=== PATIENT | female | born 1930 | race Caucasian/White ===

== ENCOUNTER 2016-03-29 08:46 | Inpatient (IN) | payer BC, OTHER ==
[2016-03-29] VITALS (7 sets, daily range): BP systolic 104–121; BP diastolic 62–70; PULSE 81–93; TEMP 36.7–37.2; O2SAT 86–98; Ht 149.9 cm; Wt 64.0 kg
[~2016-03-29] VITALS: Ht 149.9 cm; Wt 64.0 kg
[~2016-03-29 08:46] MED LIST: ETOMIDATE 2 MG/ML 20 ML VIAL IV ONE; MIDAZOLAM HCL 5 MG/ML 2ML VIAL IV ONE
[2016-03-29] MEDS ORDERED: ALBUT/IPRATROP 3MG/0.5MG NEB 3 ML VIAL INH STA (09:50)
--- NOTE | 2016-03-29 09:54 | DIAGNOSTIC IMAGING REPORT ---
CHEST ONE VIEW PORTABLE CLINICAL HISTORY: Shortness of breath COMPARISON STUDY: No previous studies for comparison. FINDINGS: The heart is enlarged. There are bilateral asymmetric airspace opacities right greater than left. Likely diagnostic considerations include a bilateral pneumonitis, versus an atypical appearance of asymmetric pulmonary edema. There is blunting of the right lateral costophrenic angle. No pneumothorax is visualized. There is aortic tortuosity/ectasia. There is evidence of prior vertebroplasty's. IMPRESSION: Bilateral asymmetric pulmonary airspace opacities right greater than left. Likely diagnostic considerations include a bilateral pneumonitis versus an atypical appearance of asymmetric pulmonary edema. Clinical and radiographic follow-up is recommended. Electronically signed by: Dameon Braden M.D. 03/29/2016 9:53 AM Dictated Date/Time: 03/29/2016 9:51 AM
[2016-03-29 10:13] LABS: BASO % 0.2 %; BASO ABS # 0.02 K/uL (0-0.2); EOS % 4.1 %; HEMATOCRIT 26.9 % (37-47); IG% 1.1 %; LYMPH % 3.7 %; LYMPH ABS # 0.47 K/uL (1.2-3.4); MEAN CELL VOLUME 93.4 fL (80-100); MEAN CORPUSCULAR HEMOGLOBIN 28.5 pg (25-34); MEAN CORPUSCULAR HGB CONC 30.5 g/dl (32-36); MONO % 8.3 %; NEUT % 82.6 %; PLATELET COUNT 319 K/uL (130-400); RED BLOOD COUNT 2.88 M/uL (4.2-5.4); WHITE BLOOD COUNT 12.59 K/uL (4.8-10.8)
[2016-03-29 10:26] LABS: PARTIAL THROMBOPLASTIN RATIO 1.6
[2016-03-29 10:30] LABS: PROTHROMBIN TIME (PATIENT) 45.5 SECONDS (9.0-12.0)
[2016-03-29 10:31] LABS: BUN/CREATININE RATIO 32.9 (10-20); CALCIUM 7.8 mg/dl (8.5-10.1); CREATININE 0.4 mg/dl (0.60-1.20); POTASSIUM 4.1 mmol/L (3.5-5.1)
[2016-03-29 10:35] LABS: ALB/GLOB RATIO 0.5 (0.9-2)
[2016-03-29] MEDS ORDERED: MRLP17 PO (10:56)
[2016-03-29] MEDS ORDERED: METH2.5T PO ×2 (10:56→12:21)
[2016-03-29] MEDS ORDERED: PANT40TA PO (10:56)
[2016-03-29] MEDS ORDERED: AMOX500T PO (10:56)
[2016-03-29] MEDS ORDERED: IPRA1AER2 INH (10:56)
[2016-03-29] MEDS ORDERED: NF656 TOP (10:56)
[2016-03-29] MEDS ORDERED: SENN-65 PO (10:56)
[2016-03-29] MEDS ORDERED: TRAZ50TA35 PO (10:56)
[2016-03-29] MEDS ORDERED: NMN5 PO (10:56)
[2016-03-29] MEDS ORDERED: NYSS/ PO (10:56)
[2016-03-29] MEDS ORDERED: CYCL5TAB PO (10:56)
[2016-03-29] MEDS ORDERED: MOML PO (10:56)
[2016-03-29] MEDS ORDERED: WARF1TAB6 PO (10:56)
[2016-03-29] MEDS ORDERED: DONE5TAB9 PO (10:56)
[2016-03-29] MEDS ORDERED: METO50TA16 PO (10:56)
[2016-03-29] MEDS ORDERED: DOCU100C31 PO (10:56)
[2016-03-29] MEDS ORDERED: SODI1ENE PR (10:56)
[2016-03-29] MEDS ORDERED: OXYC-57 PO (10:56)
[2016-03-29] MEDS ORDERED: CALC500C70 PO (10:56)
[2016-03-29] MEDS ORDERED: TRAM-10 PO (10:56)
[2016-03-29] MEDS ORDERED: FAMO20TA11 PO (10:56)
[2016-03-29] MEDS ORDERED: PRED10TA PO (10:56)
[2016-03-29] MEDS ORDERED: PIPERACILLIN/TAZOBACTAM 4.5 GM/100ML D5W IV STA (10:58)
[2016-03-29] MEDS ORDERED: LEVAQUIN 750MG / 150ML D5W IV STA (10:58)
[2016-03-29 11:01] LABS: COMPLETE YES; POLYCHROMASIA 1+
[2016-03-29] MEDS ORDERED: ALUMINUM/MAGNESIUM/SIMETH (MAALOX MAX) 30 ML UDC PO PRN (12:15)
[2016-03-29] MEDS ORDERED: ACETAMINOPHEN 325 MG TAB PO PRN (12:15)
[2016-03-29] MEDS ORDERED: AZITHROMYCIN 250 MG TAB PO ONE (12:15)
[2016-03-29] MEDS ORDERED: NITROGLYCERIN 0.4 MG SL PER TAB CHARGE SL PRN (12:15)
[2016-03-29] MEDS ORDERED: TRAMADOL HCL 50 MG TAB PO PRN (12:15)
[2016-03-29] MEDS ORDERED: MAGNESIUM HYDROXIDE SUSP 30 ML UDC PO PRN (12:15)
[2016-03-29] MEDS ORDERED: PRZC/10 PO (12:21)
[2016-03-29] MEDS ORDERED: FLV1 PO (12:21)
[2016-03-29] MEDS ORDERED: FERR325T PO (12:21)
[2016-03-29] MEDS ORDERED: ALBINS/ INH (12:24)
--- NOTE | 2016-03-29 13:57 | HISTORY & PHYSICAL EXAMINATION ---
DATE OF ADMISSION: 03/29/2016 CHIEF COMPLAINT: Shortness of breath, respiratory distress. HISTORY OF PRESENT ILLNESS: This 85-year-old female with past medical history significant for hypertension, osteoporosis, depression, history of DVTs, history of recent PE, history of iron deficiency anemia, history of compression fractures, hyperlipidemia, vitamin D deficiency, mild aortic stenosis, rheumatoid arthritis involving multiple sites, dementia, lower back pain, presents with shortness of breath. The patient was recently in [facility], she had a compression fractures in November and she had kyphoplasty at that time and recently again she had back pain and she went to [facility] and found to have again T10 compression fracture and again she was done another kyphoplasty, which went okay, but she still had poorly controlled pain and she requested muscle relaxers, pain medications. Coumadin was held during this kyphoplasty procedure and then she developed short of breath and CT angiogram done in [facility] showed bilateral lower lobe PE and Coumadin was restarted.And she also during that episode she also developed SVT which was spontaneously resolved and her atenolol was changed to Lopressor in the hospital.Patient and family says she was still short of breath yesterday when she was discharged to [facility]. In [facility] today morning she was found in respiratory distress and she was transferred back to [facility]. Here she had a mild temperature spike and she was 82% on room air and she was placed on on 5 liters and was not saturating good and she was placed on BiPAP and is currently saturating okay on BiPAP. She also complained of chest pain in the morning, but it is getting better. Has cough but not bringing up of any phlegm. Denies any nausea, vomiting. Denies abdominal pain. As per family, the patient had poor ambulatory status after surgery and walking with assistance. Appetite is very poor. Constipated. Currently, the patient seems comfortable on BiPAP. ALLERGIES: CODEINE, HYDROMORPHONE AND MORPHINE. PAST MEDICAL HISTORY: As mentioned above. PAST SURGICAL HISTORY: Significant for cystoscopy, EGD with biopsy, laparoscopic cholecystectomy, cataract surgeries, removal lesion on face, total hysterectomy, kyphoplasty done in November 2015 and 03/19/2016. MEDICATIONS: Currently, the patient is on Percocet 5/325 mg 1 tablet every 4 hours p.r.n., Tylenol 325 mg every 4 hours p.r.n. pain, Zofran 4 mg p.o. q. 8 hours p.r.n., metoprolol 50 mg p.o. b.i.d., lidocaine patch on the skin daily, Senokot-S 2 tablets at bedtime, Flexeril 5 mg p.o. b.i.d. p.r.n., Pepcid 20 mg p.o. at bedtime, oxygen 3 liters as directed, prednisone 10 mg p.o. daily, Namenda 5 mg p.o. b.i.d., albuterol nebulization as needed, Aricept 5 mg p.o. at bedtime, Combivent 1 puff 4 times a day, Coumadin 1 mg every day, currently methotrexate 2.5 mg tablets 6 tablets once a week, omeprazole 20 mg p.o. at bedtime, trazodone 25 mg p.o. daily, Prozac 20 mg p.o. daily, folic acid 1 mg p.o. daily, ferrous sulfate 325 mg p.o. every other day, Fosamax 70 mg p.o. weekly, fish oil 1 capsule p.o. daily, calcium plus D 1 pill twice a day, artificial tears. FAMILY HISTORY: Significant for mother had uterine and ovarian cancer and diabetes. Sister has breast cancer, brother had prostate cancer and lung cancer. SOCIAL HISTORY: . Remote history of smoking. No alcohol history. No. No drug use. Currently at [facility]. REVIEW OF SYSTEMS: As per HPI. Rest of review of systems could not obtain as the patient is on BiPAP and somewhat in mild respiratory distress. PHYSICAL EXAMINATION: GENERAL: The patient is on BiPAP. VITAL SIGNS: Temperature 37.7, pulse 80, respiratory rate 18, blood pressure 111/68, oxygen 98% on BiPAP 60% FIO2. HEENT: No pallor, no icterus. Pupils equal, round, and reactive to light. NECK: No JVD, no neck masses, no carotid bruits. CARDIOVASCULAR: S1, S2 heard, regular rate and rhythm, no murmur, no gallop. RESPIRATORY SYSTEM: Clear to auscultation bilaterally. No wheezing. Mild bibasilar crackles heard. ABDOMEN: Soft, bowel sounds present. Nontender. No distention. CENTRAL NERVOUS SYSTEM: Cranial nerves II through XII grossly intact. Nonfocal. EXTREMITIES: No edema, no erythema. LABORATORIES: Sodium 138, potassium 4.1, chloride 100, bicarb 29, BUN 13, creatinine 0.4, serum glucose 108, point of care lactic acid 0.7, calcium 7.8, total bilirubin 0.3, AST 17, ALT 12, alkaline phosphatase 88. Point of care troponin 0.00 BNP 1461. WBC 12.5, hemoglobin 8.2, hematocrit 26.9, platelets 319. PT 45.5, INR 4. Influenza negative. Chest x-ray shows bilateral asymmetric pulmonary airspace opacities, right greater than left, likely diagnostic concerning for bilateral pneumonitis versus atypical appearance of asymmetric pulmonary edema. EKG: Shows normal sinus rhythm with a rate of 91. No acute ST changes seen. ASSESSMENT AND PLAN: This 85-year-old female who presents with respiratory distress. 1. Respiratory distress, chest x-ray shows bilateral asymmetric pulmonary opacities, infectious versus pulmonary edema. Recent echo done on 03/12/2016 was unremarkable with normal ejection fraction and normal right ventricular function. Recent CT angiogram done in [facility] 03/24/2016 after she stopped Coumadin for kyphoplasty showed small pulmonary emboli of the proximal and distal branches of the right lower lobe and tiny pulmonary embolus of the distal left lower lobe pulmonary artery. It also showed persistent infiltrate and bronchiectasis involving the right upper lobe and right middle lobe, small patchy infiltrates of the peripheral left upper lobe, infiltrate and scar of the bilateral lower lobe, small dependent pleural effusions, greater on the right and the repeat CAT scan done before discharge to [facility] yesterday also showed persistent extensive opacities in both lungs. It looks like the patient was discharged on Augmentin, but not getting better. She was in the hospital for a couple of weeks for kyphoplasty and the PE. We will treat for health care pneumonia with Zosyn IV and vancomycin. She received Levaquin in the ER. We will place her on p.o. azithromycin. We will follow the cultures. Continue BiPAP for now. We will also get echocardiogram to rule out any congestive heart failure. Consulted pulmonary for further recommendations. . Closely monitor in the PCU. 2. Chest pain. Pain is getting better now. Initial EKG and troponin negative. We will follow serial cardiac enzymes, we will also follow echocardiogram. She also had a recent SVT during the recent [place] hospitalization for which atenolol was changed to Lopressor. Currently heart rate is fine but because of ongoing issues we will consult cardiology for further recommendations. 3. History of deep venous thrombosis and recent pulmonary embolism, on Coumadin. INR is supratherapeutic. We will hold the Coumadin for now and follow closely PT/INR. 4. History of rheumatoid arthritis. Continue prednisone, hold methotrexate as patient is currently sick. PT, OT when more stable. 5. Compression fractures thoracic, recent kyphoplasty, has back pain. Pain control cautiously. The patient comes from [facility]. PT/OT when more stable and transfer to [facility] as per PT recommendations. 6. History of hypertension. Continue metoprolol with holding parameters. 7. History of iron deficiency anemia, hemoglobin was 8.2 currently. We will follow the labs. We will check the stool for Hemoccult. Continue the iron supplements. If hemoglobin goes down we will consider transfusing packed red blood cells. 8. History of osteoporosis. Hold Fosamax for now. 9. History of depression. Continue Prozac. 10. History of dementia. Continue Aricept and Namenda. 11. Deep venous thrombosis prophylaxis. INR is supratherapeutic. DISPOSITION: Closely monitor in the tele floor. Level 1 full code. PT and OT prior to discharge. Social service to help with discharge planning. RENAND
[2016-03-29] MEDS ORDERED: PIPERACILL/TAZOBAC CONSULT ACTIVE PRN (14:45)
[2016-03-29] MEDS ORDERED: VANCOMYCIN CONSULT ACTIVE PRN (14:45)
--- NOTE | 2016-03-29 15:46 | EMERGENCY ROOM VISIT NOTE ---
History Report prepared by Kimberlyn: Latha Magana Under the Supervision of: Dr. Tiburcio Delaney M.D. First contact with patient: 09:35 Chief Complaint: SHORTNESS OF BREATH Stated Complaint: SHORTNESS OF BREATH Nursing Triage Summary: Pt arrives via ALS litter from [facility] for eval of sob. Per medic, pt was admitted to [facility] yesterday for compression fx. Medic reports that [facility] reported decreased O2 sat today. Per medic, pt has a hx of PE's s/p back surgery. Pt sat 82% RA upon ED arrival. History of Present Illness The patient is a 85 year old female who presents to the Emergency Room with complaints of persistent shortness of breath which started prior to arrival. The family reports that the patent was admitted to [place] for 12 days a few weeks ago after the patient began experiencing back pain. She was diagnosed with a compression fracture and had a kyphoplasty procedure. After the procedure she began to breathe poorly and was found to have bilateral pulmonary emboli. The patient has been on warfarin on for many years and had recently started receiving Lovenox injections in addition. They state that the patient has previously had pneumonia. They report that the patient had a CT scan yesterday at [place] but report that it was normal, so she was discharged and [facility] to [facility]. She notes that she was diaphoretic and tachycardic while in [place] yesterday and was monitored for heart issues, but the family is unsure why she was symptomatic. The family reports that the patient was experiencing some shortness of breath prior to being admitted to [facility]. The medic reports that [facility] reports that the patient was hypoxic today. The patient reports that she doesn't feel like her shortness of breath is worsening. They family states that when the patient was taken off of oxygen, her O2 sat decreased into the 60's. Prior to her stay at [place], she never needed to be on oxygen. She does not have a history of smoking Pt denies LOC, headache, fevers, chills, diaphoresis, visual changes, neck pain, chest pain, nausea, vomiting, abdominal pain, melena, hematochezia, urinary symptoms, numbness, weakness, lymphadenopathy, rash, or other complaints. Source of History: patient, family Onset: [employer] Position: other (respiratory) Quality: other (shortness of breath) Timing: other (persistent) Modifying Factors (Relieving): oxygen Review of Systems See HPI for pertinent positives and negatives. A total of ten systems were reviewed and were otherwise negative. Past Medical & Surgical Medical Problems: (1) Acute respiratory failure (2) Anticoagulated on Coumadin (3) Pneumonia (4) Pulmonary embolism Surgical Problems: (1) H/O kyphoplasty Family History Non-contributory secondary to age. Social History Smoking Status: Never Smoker Marital Status: Occupation Status: unemployed Current/Historical Medications Scheduled Albuterol Sulf (Proventil 0.083% 2.5MG/3ML), 2.5 MG INH QID Amoxicillin & Pot Clavulanate (Augmentin 500MG), 500 MG PO TIDM Calcium/Vitamin D (Os-Scott 500 Plus D), 1 TAB PO BIDM Cyclobenzaprine Hcl (Flexeril), 5 MG PO BID Docusate Sodium (Docusate Sodium), 1 CAP PO BID Donepezil HCl (Aricept), 1 TAB PO DAILY Famotidine (Pepcid), 40 MG PO DAILY Ferrous Sulfate (Ferrous Sulfate), 1 TAB PO Q2D Fluoxetine Hcl (Prozac), 1 CAP PO QAM Folic Acid (Folic Acid), 1 MG PO DAILY Ipratropium-Albuterol (Combivent Respimat), 1 PUFFS INH QID Lidocaine (Lidoderm Patch 5%), 1 PATCH TOP DAILY Memantine (Namenda), 5 MG PO BID Methotrexate (Methotrexate), 15 MG PO WK Metoprolol Tartrate (Lopressor) (Lopressor), 50 MG PO Q12 Nystatin (Nystatin Suspension), 5 ML PO QID Pantoprazole (Protonix), 40 MG PO DAILY Polyethylene (Miralax), 17 GM PO DAILY Prednisone Tab (Prednisone), 10 MG PO DAILY Senna/Docusate Sod (Senokot S), 1 TAB PO DAILY Trazodone Hcl (Trazodone), 75 MG PO DAILY Warfarin Sod (Jantoven), 1 MG PO DAILY Scheduled PRN Magnesium Hydroxide (Milk Of Magnesia), 30 ML PO DAILY PRN for Constipation Oxycodone/Acetaminophen 5MG/325MG (Percocet 5MG/325MG), 1 TABLET PO HS PRN for Breakthrough Pain Sodium Phosphates (Fleet Enema Six Pack), 133 ML NV DAILY PRN for Constipation Tramadol (Ultram), 50 MG PO Q6H PRN for Breakthrough Pain Allergies Coded Allergies: Codeine (Unverified Adverse Reaction, Severe, vomiting, 03/29/16) Hydromorphone (Unverified Adverse Reaction, Severe, vomiting, 03/29/16) Morphine (Unverified Adverse Reaction, Severe, vomiting, 03/29/16) Physical Exam Vital Signs Date Time Temp Pulse Resp B/P Pulse Ox O2 Delivery O2 Flow Rate FiO2 03/29/16 11:48 88 18 111/68 98 BiPAP 60 03/29/16 10:35 84 18 132/75 98 BiPAP 60 03/29/16 10:23 88 98 03/29/16 09:59 89 20 91 Nasal Cannula 5.0 03/29/16 08:56 93 03/29/16 08:55 37.7 92 20 114/80 82 Room Air 03/29/16 08:55 82 Room Air 03/29/16 08:46 91 Nasal Cannula 5.0 Physical Exam GENERAL: Awake, alert, dyspneic-appearing, in mild distress. HENT: Normocephalic, atraumatic. Oropharynx unremarkable. EYES: Normal conjunctiva. Sclera non-icteric. NECK: Supple. No nuchal rigidity. FROM. No JVD. RESPIRATORY: Crackles bilaterally. Tachypneic. CARDIAC: Regular rate, normal rhythm. Extremities warm and well perfused. Pulses equal. ABDOMEN: Soft, non-distended. No tenderness to palpation. No rebound or guarding. No masses. RECTAL: Deferred. MUSCULOSKELETAL: Chest examination reveals no tenderness. There is no CVA tenderness to palpation. No joint edema. LOWER EXTREMITIES: Calves are equal size bilaterally and non-tender. 1+ edema lower legs. Chronic discoloration. NEURO: Normal sensorium. No sensory or motor deficits noted. SKIN: No rash or jaundice noted. Medical Decision & Procedures ER Provider Diagnostic Interpretation: Radiology results as stated below per my review and radiologist interpretation. CHEST ONE VIEW PORTABLE CLINICAL HISTORY: Shortness of breath COMPARISON STUDY: No previous studies for comparison. FINDINGS: The heart is enlarged. There are bilateral asymmetric airspace opacities right greater than left. Likely diagnostic considerations include a bilateral pneumonitis, versus an atypical appearance of asymmetric pulmonary edema. There is blunting of the right lateral costophrenic angle. No pneumothorax is visualized. There is aortic tortuosity/ectasia. There is evidence of prior vertebroplasty's. IMPRESSION: Bilateral asymmetric pulmonary airspace opacities right greater than left. Likely diagnostic considerations include a bilateral pneumonitis versus an atypical appearance of asymmetric pulmonary edema. Clinical and radiographic follow-up is recommended. Electronically signed by: Dameon Braden M.D. 03/29/2016 9:53 AM Laboratory Results 03/29/16 09:40 Red Blood Count 2.88, Mean Corpuscular Volume 93.4, Mean Corpuscular Hemoglobin 28.5, Mean Corpuscular Hemoglobin Concent 30.5, Mean Platelet Volume 9.0, Neutrophils (%) (Auto) 82.6, Lymphocytes (%) (Auto) 3.7, Monocytes (%) (Auto) 8.3, Eosinophils (%) (Auto) 4.1, Basophils (%) (Auto) 0.2, Neutrophils # (Auto) 10.40, Lymphocytes # (Auto) 0.47, Monocytes # (Auto) 1.04, Eosinophils # (Auto) 0.52, Basophils # (Auto) 0.02 03/29/16 09:40 Test 03/29/16 09:40 03/29/16 09:53 03/29/16 10:02 03/29/16 10:30 White Blood Count 12.59 K/uL (4.8-10.8) Red Blood Count 2.88 M/uL (4.2-5.4) Hemoglobin 8.2 g/dL (12.0-16.0) Hematocrit 26.9 % (37-47) Mean Corpuscular Volume 93.4 fL (80-100) Mean Corpuscular Hemoglobin 28.5 pg (25-34) Mean Corpuscular Hemoglobin Concent 30.5 g/dl (32-36) Platelet Count 319 K/uL (130-400) Mean Platelet Volume 9.0 fL (7.4-10.4) Neutrophils (%) (Auto) 82.6 % Lymphocytes (%) (Auto) 3.7 % Monocytes (%) (Auto) 8.3 % Eosinophils (%) (Auto) 4.1 % Basophils (%) (Auto) 0.2 % Neutrophils # (Auto) 10.40 K/uL (1.4-6.5) Lymphocytes # (Auto) 0.47 K/uL (1.2-3.4) Monocytes # (Auto) 1.04 K/uL (0.11-0.59) Eosinophils # (Auto) 0.52 K/uL (0-0.5) Basophils # (Auto) 0.02 K/uL (0-0.2) RDW Standard Deviation 57.5 fL (36.4-46.3) RDW Coefficient of Variation 16.7 % (11.5-14.5) Immature Granulocyte % (Auto) 1.1 % Immature Granulocyte # (Auto) 0.14 K/uL (0.00-0.02) Nucleated RBC Absolute Count (auto) 0.02 K/uL (0-0) Nucleated Red Blood Cells % 0.2 % Polychromasia 1+ Prothrombin Time 45.5 SECONDS (9.0-12.0) Prothromb Time International Ratio 4.0 (0.9-1.1) Activated Partial Thromboplast Time 41.4 SECONDS (21.0-31.0) Partial Thromboplastin Ratio 1.6 Anion Gap 9.0 mmol/L (3-11) Est Creatinine Clear Calc Drug Dose 86.3 ml/min Estimated GFR () 110.1 Estimated GFR (Non- 95.0 BUN/Creatinine Ratio 32.9 (10-20) Calcium Level 7.8 mg/dl (8.5-10.1) Total Bilirubin 0.3 mg/dl (0.2-1) Aspartate Amino Transf (AST/SGOT) 17 U/L (15-37) Alanine Aminotransferase (ALT/SGPT) 12 U/L (12-78) Alkaline Phosphatase 88 U/L (45-117) Pro-B-Type Natriuretic Peptide 1461 pg/ml (0-1800) Total Protein 5.9 gm/dl (6.4-8.2) Albumin 2.0 gm/dl (3.4-5.0) Globulin 3.9 gm/dl (2.5-4.0) Albumin/Globulin Ratio 0.5 (0.9-2) Bedside Troponin I 0.000 ng/ml (0-0.045) Bedside Lactic Acid Venous 0.75 mmol/L (0.90-1.70) Influenza Type A Antigen Neg for Influ A (NEG) Influenza Type B Antigen Neg for Influ B (NEG) Laboratory results reviewed by me Medications Administered Medications (Trade) Dose Ordered Sig/Jazmyn Route Start Time Stop Time Status Last Admin Dose Admin Albuterol/ Ipratropium (Duoneb) 3 ml NOW STAT INH 03/29/16 09:50 03/29/16 09:51 DC 03/29/16 10:23 3 ML Levofloxacin (Levaquin / D5W) 750 mg NOW STAT IV 03/29/16 10:58 03/29/16 11:00 DC 03/29/16 11:26 750 MG Piperacillin Sod/ Tazobactam Sod (Zosyn Iv) 4.5 gm NOW STAT IV 03/29/16 10:58 03/29/16 11:00 DC 03/29/16 11:26 4.5 GM ECG Indication: SOB/dyspnea Rate (beats per minute): 91 Rhythm: normal sinus Findings: nonspecific-ST abn, no acute ischemic change, no ectopy, other (LVH) ED Course 0940: The patient was evaluated in room B8. A complete history and physical exam was performed. 0950: Duoneb 3 ml INH. 1009: I reviewed the patient's records from [facility]. The CT scan from yesterday revealed extensive opacity in both lungs, which was more present in the right lung. She was found to have bilateral small PEs after the kyphoplasty. She was discharged with a diagnosis of compression fracture in T10 and DVT. At this time, the patient was moved to B1 to facilitate BiPap. 1026: I reassessed the patient. 1058: Zosyn Iv 4.5 gm, Levofloxacin 750 mg IV. 1105: I reevaluated the patient. She is resting comfortable and tolerating the BiPap well. Her vitals are stable. I updated the family on the patient's status. 1116: I discussed the patient's case [facility] Dow[facility] The patient will be evaluated for further management. 1134: Upon reexamination, the patient was stable. I discussed the test results and treatment plan with the patient and her family. The patient will be evaluated for further management. Medical Decision Triage Nursing notes reviewed. The patient's presentation and history were concerning for respiratory difficulty. Etiologies such as pneumonia, COPD, reactive airway disease, CHF, cardiac ischemia, pulmonary embolism, pneumothorax, musculoskeletal, infections, gastrointestinal, as well as others were entertained. The patient was evaluated. She was dyspneic. Supplemental oxygen was not quite adequate to maintain her oxygen saturation above 90%. She had crackles bilaterally. X-ray showed significant pulmonary opacities. She was placed on BiPAP and was doing much better with this. She was given a DuoNeb as well. The patient had records obtained from the [facility]. CT imaging from yesterday did reveal findings consistent with bilateral pulmonary opacities. The patient had a mild leukocytosis on CBC as well as a moderate anemia. She was typed and screened. The patient had negative cardiac markers and BNP was upper limits of normal. The patient's chemistry panel was unremarkable. ECG was nonischemic. The patient was given Zosyn and Levaquin due to the abnormal chest x-ray and leukocytosis. Family was informed. She will need further evaluation and management in the hospital. Consultation was made with the [facility] service patient was evaluated in the Emergency Room and admitted for further treatment. The chart was completed utilizing [employer] Speech voice recognition software. Grammatical errors, random word insertions, pronoun errors, and incomplete sentences are an occasional consequence of this system due to software limitations, ambient noise, and hardware issues. Any formal questions or concerns about the content, text, or information contained within the body of this dictation should be directly addressed to the physician for clarification. Consults Time Called: 1109 Consulting Physician: Doc Salgado Returned Call: [phone] I discussed the patient's case with [facility]. The patient will be evaluated for further management. Impression Primary Impression: Hypoxia Additional Impressions: Leukocytosis Pneumonitis Critical Care I have personally spent greater than 30 minutes of critical care time in the direct management of this patient. This includes bedside care, interpretation of diagnostic studies, and testing, discussion with consultants, patient, and family members, and other required patient management activities. This 30 minutes is in excess of all separately billable procedures. Scribe Attestation The scribe's documentation has been prepared under my direction and personally reviewed by me in its entirety. I confirm that the note above accurately reflects all work, treatment, procedures, and medical decision making performed by me. Departure Information Dispostion Being Evaluated By Hospitalist Prescriptions Albuterol Sulf (PROVENTIL 0.083% 2.5MG/3ML) 2.5 Mg/3 Ml Nebu 2.5 MG INH QID for SOB/Wheezing, #1 EA Prov: Dmitriy Dowd MD 03/29/16 Ferrous Sulfate (FERROUS SULFATE) 325 Mg Tab 1 TAB PO Q2D, #20 Prov: Dmitriy Dowd MD 03/29/16 Folic Acid (Folic Acid) 1 Mg Tab 1 MG PO DAILY, #30 Prov: Dmitriy Dowd MD 03/29/16 Fluoxetine Hcl (PROZAC) 10 Mg Cap 1 CAP PO QAM for 30 Days, #30 CAP 2 Refills Prov: Dmitriy Dowd MD 03/29/16 Methotrexate (Methotrexate) 2.5 Mg Tab 15 MG PO WK, #20 TAB TAKE 15 MG ONCE WEEKLY ON MONDAYS Prov: Dmitriy Dowd MD 03/29/16 Referrals No Doctor, Assigned (PCP) Patient Instructions [facility] Problem Qualifiers
[2016-03-29] MEDS ORDERED: ALBUTEROL 0.083% NEBU SOLN 3 ML VIAL INH SCH (16:00)
[2016-03-29] MEDS ORDERED: ALBUTEROL 0.083% NEBU SOLN 3 ML VIAL INH PRN (16:00)
[2016-03-29] MEDS ORDERED: VANCOMYCIN INJ 1,350 MG in SODIUM CHLORIDE 0.9% 250ML 250 ML IV SCH (16:30)
--- NOTE | 2016-03-29 17:01 | Pharmacy Progress Note ---
Pharmacy Antibiotic Consult Date of Service: Mar 29, 2016. Pharmacy Dosing Scope Pharmacy is consulted to initiate vancomycin and piperacillin/tazobactam IV dosing therapy, order appropriate labs and adjust drug dose/frequency. Subjective The patient is a 85 year old female admitted on Mar 29, 2016 at 12:17 with acute respiratory failure, r/o pneumonia Objective Height (Feet): 4 Height (Inches): 11.00 Weight (Kilograms): 68.000 Lab Results (24hrs): Laboratory Tests Test 03/29/16 09:40 BUN/Creatinine Ratio 32.9 Blood Urea Nitrogen 13 mg/dl Creatinine 0.40 mg/dl White Blood Count 12.59 K/uL Red Blood Count 2.88 M/uL Hemoglobin 8.2 g/dL Hematocrit 26.9 % Mean Corpuscular Volume 93.4 fL Mean Corpuscular Hemoglobin 28.5 pg Mean Corpuscular Hemoglobin Concent 30.5 g/dl Platelet Count 319 K/uL Mean Platelet Volume 9.0 fL Neutrophils (%) (Auto) 82.6 % Lymphocytes (%) (Auto) 3.7 % Monocytes (%) (Auto) 8.3 % Eosinophils (%) (Auto) 4.1 % Basophils (%) (Auto) 0.2 % Neutrophils # (Auto) 10.40 K/uL Lymphocytes # (Auto) 0.47 K/uL Monocytes # (Auto) 1.04 K/uL Eosinophils # (Auto) 0.52 K/uL Basophils # (Auto) 0.02 K/uL Micro Results: Item Value Date Time Influenza Type B Antigen Neg for Influ B 03/29/16 1030 Influenza Type A Antigen Neg for Influ A 03/29/16 1030 Item Value Date Time Blood Culture Received 03/29/16 0940 Blood Pending Blood Culture Received 03/29/16 1000 Blood Pending Assessment & Plan Assessment: * 85 y/o female with acute respiratory failure * Factors for healthcare associated pathogens: * Recently at [facility] then discharge to [facility] * Recent treatment with Augmentin [employer] * Immunocompromised (on prednisone as outpatient) Plan: * Treat empirically for possible HAP with broad-spectrum ABX Vancomycin: * Loading dose: 1350 mg IV X 1 dose * Maintenance dose: 1000 mg IV q12 hours * Estimated kinetics: T1/2: 9.4 hours, Ten: 0.074 hours-1, Vd: 0.7L/kg * SCr below "normal" level, however elderly patients do tend to clear vancomycin well when this is the case * Goal trough: 15-20 mcg/mL for pulmonary infections Piperacillin/tazobactam: * 4.5g IV x1 dose in ED (30 minute loading dose) * 3.375g IV every 8 hours (4 hour infusion) * no change for CrCl above 20mL/min Zithromax (not a pharmacy consult): * 500mg PO daily Labs: * MRSA swab pending * may help de-escalate vancomycin * May consider urine legionella antigen to help de-escalate azithromycin Pharmacy will continue to follow and will adjust dose/frequency as necessary. Thank you
[2016-03-29] MEDS: PIPERACILL/TAZOBAC IV 3.375 GM in DEXTROSE 5% 100ML 100 ML IV SCH (17:27)
[2016-03-29] MEDS: NYSTATIN SUSP 500,000 U/5 ML UDC PO SCH ×2 (17:39→22:10)
[2016-03-29] MEDS: IPRATROPIUM BROMIDE/ALBUTEROL respimat INH INH SCH ×2 (17:40→21:29)
[2016-03-29] MEDS: CALCIUM 600MG + VIT D 400 IU TAB PO SCH (17:40)
[2016-03-29 17:53] LABS: HEMATOCRIT 29.5 % (37-47)
--- NOTE | 2016-03-29 18:56 | DIAGNOSTIC IMAGING REPORT ---
Chest ultrasound EFFUSION-CHEST/MEDIASTINUM CLINICAL HISTORY: PLEURAL EFFUSION dyspnea TECHNIQUE: Ultrasound COMPARISON STUDY: Chest same date FINDINGS: No significant left effusion. Very small right effusion. No evidence for major fusion. IMPRESSION: Very small right effusion. No significant left effusion. Electronically signed by: Kyaw Moses M.D. 03/29/2016 6:54 PM Dictated Date/Time: 03/29/2016 6:53 PM
[2016-03-29] MEDS: OXYCODONE/ACETAMINOPHEN 5-325 TAB PO PRN (20:03)
--- NOTE | 2016-03-29 20:50 | Pulmonary Consultation ---
History General Date of Service: Mar 29, 2016. Stated Complaint: Acute Respiratory Failure, Pneumonia HPI The patient is a 85 year old female who presents to [facility] with complaints of Acute Respiratory Failure, Pneumonia. The patient's primary care provider is Rufus Sims. 85-year-old female admitted with respiratory insufficiency. Patient has had a complicated medical history since November 2015 where she has undergone two kyphoplastys with chronic low back pain/T10 compression fracture. During her treatment the patient developed acute shortness of breath and CT angiogram performed at [facility] demonstrated bilateral lower lobe pulmonary emboli the patient was initiated on Coumadin treatment. During this time she also was noted to experience SVT but with treatment it spontaneously resolved. Yesterday she was discharged to [facility] but was noted in the morning to be in respiratory distress and was transferred to [facility]. Initial saturations were in the low 80s on room air. She was initially titrated up to 5 L nasal cannula but was switched to BiPAP support due to pending respiratory failure. Anatomically our interview the patient notes difficulty breathing "moving air". She still notes severe dyspnea at rest but denies: Pleurisy, cardiac chest pain , fever, chills, hemoptysis or productive sputum. Historian: patient, EMS Review of Systems Constitutional: reports: malaise, weakness Eyes: reports: no symptoms ENT: reports: no symptoms Cardiovascular: reports: chest tightness Respiratory: reports: shortness of breath Gastrointestinal: reports: no symptoms Genitourinary - Female: reports: no symptoms Musculoskeletal: reports: joint pain, myalgias Integumentary: reports: no symptoms Neurologic: reports: no symptoms Psychiatric: reports: anxiety Endocrine: no symptoms Hematologic / Lymphatic: no symptoms Allergic / Immunologic: no symptoms Past Medical History Past Medical History: #1 hypertension #2 osteoporosis #3 depression #4 DVTs/pulmonary embolism #5 and deficiency anemia #6 compression fractures #7 hyperlipidemia #8 vitamin D deficiency #9 mild aortic stenosis #10 rheumatoid arthritis #11 dementia #12 chronic lower back pain Past Surgical History: #1 cystoscopy #2 EGD #3 laparoscopic cholecystectomy #4 cataract surgery #5 hysterectomy #6 kyphoplasty performed November 2015 and 03/19/2016 Family History Mother: Uterine and ovarian cancer, diabetes Sr.: Breast cancer Brother: Prostate cancer, lung cancer Social History Tobacco: Remote history EtOH: None IV drug use: None Smoking Status: Never Smoker Marital status: Occupational Status: unemployed Allergies Coded Allergies: Codeine (Unverified Adverse Reaction, Severe, vomiting, 03/29/16) Hydromorphone (Unverified Adverse Reaction, Severe, vomiting, 03/29/16) Morphine (Unverified Adverse Reaction, Severe, vomiting, 03/29/16) Current Medications Reported Home Medications Medications Dose Route/Sig Max Daily Dose Days Date Category Dose Instructions Proventil 0.083% 2.5MG/3ML (Albuterol Sulf) 2.5 Mg/3 Ml Nebu 2.5 Mg INH QID 03/29/16 Rx Ferrous Sulfate 325 Mg Tab 1 Tab PO Q2D 03/29/16 Rx Folic Acid 1 Mg Tab 1 Mg PO DAILY 03/29/16 Rx Prozac (Fluoxetine Hcl) 10 Mg Cap 1 Cap PO QAM 30 03/29/16 Rx Methotrexate 2.5 Mg Tab 15 Mg PO WK 03/29/16 Rx TAKE 15 MG ONCE WEEKLY ON MONDAYS Percocet 5MG/325MG (Oxycodone/Acetaminophen) Tab 1 Tablet PO HS PRN 03/29/16 Reported PAIN Ultram (Tramadol HCl) 50 Mg Tab 50 Mg PO Q6H PRN 03/29/16 Reported Fleet Enema Six Pack (Sodium Phosphates) 1 Maria C Maria C 133 Ml OK DAILY PRN 03/29/16 Reported ADMINISTER 1 FLEET ENEMA DIALY IF NO BM OR CONSTIPATION PAST 3 DAYS Milk Of Magnesia (Magnesium Hydroxide) 30 Ml Susp 30 Ml PO DAILY PRN 03/29/16 Reported TAKE 30ML DAILY IF NO BM OR CONSTIPATION PAST 1 DAY Jantoven (Warfarin Sodium) 1 Mg Tab 1 Mg PO DAILY 03/29/16 Reported TAKE 1MG DAILY AT 2100 CHECK FOR DAILY WARFARIN ORDERS Trazodone (Trazodone HCl) 50 Mg Tab 75 Mg PO DAILY 03/29/16 Reported TAKE 75MG DAILY AT 2100 Senokot S (Senna/Docusate Sodium) 1 Tab Tab 1 Tab PO DAILY 03/29/16 Reported Prednisone 10 Mg Tab 10 Mg PO DAILY 03/29/16 Reported TAKE 10MG WITH BREAKFAST DAILY Miralax (Polyethylene) 17 Gm Pow 17 Gm PO DAILY 03/29/16 Reported Protonix (Pantoprazole Sodium) 40 Mg Tab 40 Mg PO DAILY 03/29/16 Reported Nystatin Suspension (Nystatin) 1 Ml Susp 5 Ml PO QID 03/29/16 Reported NYSTATIN 1000,000 UNITS/1 ML TAKE 5 ML 4 TIMES DAILY Lopressor (Metoprolol Tartrate) 50 Mg Tab 50 Mg PO Q12 03/29/16 Reported Namenda (Memantine) 5 Mg Tab 5 Mg PO BID 03/29/16 Reported Lidoderm Patch 5% (Lidocaine) 1 Ea Tdsy 1 Patch TOP DAILY 03/29/[address] ONE PATCH DAILY 0700 TO 1900 TO PAINFUL REGION Combivent Respimat (Ipratropium-Albuterol) 1 Aer Aer 1 Puffs INH QID 03/29/16 Reported ONE INHALATION FOUR TIMES A DAY NOT TO EXCEED 6 INHALATIONS / 24 HOURS Pepcid (Famotidine) 20 Mg Tab 40 Mg PO DAILY 03/29/16 Reported TAKE 40 MG DAILY AT 2100 Aricept (Donepezil HCl) 5 Mg Tab 1 Tab PO DAILY 90 03/29/16 Reported TAKE 5 MG DAILY AT 2100 Docusate Sodium 100 Mg Cap 1 Cap PO BID 7 03/29/16 Reported TAKE 1 CAPSULE TWICE DAILY AT 0900 AND 1700 Flexeril (Cyclobenzaprine Hcl) 5 Mg Tab 5 Mg PO BID 03/29/16 Reported PRN Os-Scott 500 Plus D (Calcium/Vitamin D) Tab 1 Tab PO BIDM 03/29/16 Reported Augmentin 500MG (Amoxicillin & Pot Clavulanate) 1 Tab Tab 500 Mg PO TIDM 10 03/29/16 Reported Physical Physical Exam Vital Signs: Date Time Temp Pulse Resp B/P Pulse Ox O2 Delivery O2 Flow Rate FiO2 03/29/16 16:02 82 03/29/16 16:00 36.8 88 18 121/67 96 BiPAP 60 03/29/16 15:40 83 18 121/67 98 BiPAP 60 03/29/16 13:50 80 18 102/61 97 BiPAP 60 03/29/16 13:03 86 03/29/16 11:48 88 18 111/68 98 BiPAP 60 03/29/16 10:35 84 18 132/75 98 BiPAP 60 03/29/16 10:23 88 98 03/29/16 09:59 89 20 91 Nasal Cannula 5.0 03/29/16 08:56 93 03/29/16 08:55 37.7 92 20 114/80 82 Room Air 03/29/16 08:55 82 Room Air 03/29/16 08:46 91 Nasal Cannula 5.0 General Appearance: moderate distress Head: NORMOCEPHALIC, ATRAUMATIC Eyes: PERRLA, NO DISCHARGE, EOMI, SCLERAE NORMAL ENT: other (dry mucous membranes BiPAP mask in place) Neck: NORMAL RANGE OF MOTION, NO TENDERNESS, TRACHEA MIDLINE, NO STRIDOR Respiratory: other (inspiratory Velcro rales appreciated globally) Cardiovasular: other (tachycardic but no murmurs rubs or gallops could be auscultated) Abdomen: NON TENDER, NORMAL BOWEL SOUNDS, NO REBOUND, NO MASSES, NO GUARDING, NO ORGANOMEGALY Genitourinary - Female: EXTERNAL GENITALIA NORMAL Back: NORMAL INSPECTION, NO MIDLINE TENDERNESS, NO CVA TENDERNESS, NO PARAVERTEBRAL TTP Upper Extremities: NO EDEMA, NO DEFORMITY, NORMAL ROM Lower Extremities: other (bilateral lower extremity stasis dermatitis appreciated) Pulses: carotid (R) (1+), carotid (L) (1+), dorsalis pedis (R) (1+), dorsalis pedis (L) (1+) Neuro: ALERT, ORIENTED x 3, NORMAL MOTOR EXAM, NORMAL SENSATION Reflexes: biceps (R) (1+), bicpes (L) (1+), achilles (R) (1+), achilles (L) (1+ ) Babinski Testing: right (downgoing), left (downgoing) Psychiatric: NORMAL AFFECT Diagnostics Labs Results Past 24 Hours Test 03/29/16 09:40 03/29/16 09:53 03/29/16 10:02 03/29/16 10:30 Range/Units White Blood Count 12.59 4.8-10.8 K/uL Red Blood Count 2.88 4.2-5.4 M/uL Hemoglobin 8.2 12.0-16.0 g/dL Hematocrit 26.9 37-47 % Mean Corpuscular Volume 93.4 80-100 fL Mean Corpuscular Hemoglobin 28.5 25-34 pg Mean Corpuscular Hemoglobin Concent 30.5 32-36 g/dl Platelet Count 319 130-400 K/uL Mean Platelet Volume 9.0 7.4-10.4 fL Neutrophils (%) (Auto) 82.6 % Lymphocytes (%) (Auto) 3.7 % Monocytes (%) (Auto) 8.3 % Eosinophils (%) (Auto) 4.1 % Basophils (%) (Auto) 0.2 % Neutrophils # (Auto) 10.40 1.4-6.5 K/uL Lymphocytes # (Auto) 0.47 1.2-3.4 K/uL Monocytes # (Auto) 1.04 0.11-0.59 K/uL Eosinophils # (Auto) 0.52 0-0.5 K/uL Basophils # (Auto) 0.02 0-0.2 K/uL RDW Standard Deviation 57.5 36.4-46.3 fL RDW Coefficient of Variation 16.7 11.5-14.5 % Immature Granulocyte % (Auto) 1.1 % Immature Granulocyte # (Auto) 0.14 0.00-0.02 K/uL Nucleated RBC Absolute Count (auto) 0.02 0-0 K/uL Nucleated Red Blood Cells % 0.2 % Polychromasia 1+ Prothrombin Time 45.5 9.0-12.0 SECONDS Prothromb Time International Ratio 4.0 0.9-1.1 Activated Partial Thromboplast Time 41.4 21.0-31.0 SECONDS Partial Thromboplastin Ratio 1.6 Sodium Level 138 136-145 mmol/L Potassium Level 4.1 3.5-5.1 mmol/L Chloride Level 100 98-107 mmol/L Carbon Dioxide Level 29 21-32 mmol/L Anion Gap 9.0 3-11 mmol/L Blood Urea Nitrogen 13 7-18 mg/dl Creatinine 0.40 0.60-1.20 mg/dl Est Creatinine Clear Calc Drug Dose 86.3 ml/min Estimated GFR () 110.1 Estimated GFR (Non- 95.0 BUN/Creatinine Ratio 32.9 10-20 Random Glucose 108 70-99 mg/dl Calcium Level 7.8 8.5-10.1 mg/dl Total Bilirubin 0.3 0.2-1 mg/dl Aspartate Amino Transf (AST/SGOT) 17 15-37 U/L Alanine Aminotransferase (ALT/SGPT) 12 12-78 U/L Alkaline Phosphatase 88 45-117 U/L Pro-B-Type Natriuretic Peptide 1461 0-1800 pg/ml Total Protein 5.9 6.4-8.2 gm/dl Albumin 2.0 3.4-5.0 gm/dl Globulin 3.9 2.5-4.0 gm/dl Albumin/Globulin Ratio 0.5 0.9-2 Bedside Troponin I 0.000 0-0.045 ng/ml Bedside Lactic Acid Venous 0.75 0.90-1.70 mmol/L Influenza Type A Antigen Neg for Influ A NEG Influenza Type B Antigen Neg for Influ B NEG Test 03/29/16 17:45 03/29/16 20:01 Range/Units Hemoglobin 8.9 12.0-16.0 g/dL Hematocrit 29.5 37-47 % Creatine Kinase MB Ratio 0-3.0 Microbiology Results 03/29/16 Blood Culture, Received Pending 03/29/16 Blood Culture, Received Pending Diagnostic Radiology Chest x-ray: Tortuous trachea, bilateral patchy infiltrates right greater than left, parabronchial cuffing Thoracic ultrasound small right-sided pleural effusion EKG Interpretation: NORMAL EKG Impression Assessment and Plan 85-year-old female admitted with respiratory insufficiency: #1 respiratory insufficiency: Exact etiology of this patient's respiratory insufficiency is unknown at this time. Pulmonary embolism: Does have a history of pulmonary embolism but INR currently supratherapeutic no signs of right ventricular failure On physical exam or on her EKG. Do suggest we obtain echocardiogram for RV function and RSVP of estimation. Hypoxia: We'll obtain ABG and if no signs of PaCO2 retention will switch to high flow oxygen system. Patient's ABG shows elevated PaCO2 continue on BiPAP support. CT abnormality: Patient with diffuse bilateral CT changes and inspiratory Velcro rales on physical exam. It's possible patient's rheumatoid arthritis could have advanced pulmonary interstitial lung changes. I would like to have previous imaging and possible pulmonary function tests if available ID: Agree with current Zosyn, Levaquin and azithromycin as patient has had recent hospital admissions.
[2016-03-29 21:13] LABS: ALLEN TEST POS (POS); ARTERIAL BLD GAS O2 SATURATION 97.3 % (90-95); ARTERIAL BLOOD GAS BASE EXCESS 3.7 mEq/L (-9-1.8); ARTERIAL BLOOD GAS HCO3 27 mmol/L (19-24); ARTERIAL BLOOD GAS PO2 133 mmHg (80-95); O2 ADMINISTRATION 60%
[2016-03-29 21:18] LABS: ARTERIAL BLOOD GAS pH 7.52 (7.35-7.45)
[2016-03-29] MEDS: METOPROLOL TARTRATE 50 MG TAB PO SCH (21:31)
[2016-03-29] MEDS: DOCUSATE SODIUM 100 MG CAP PO SCH (21:31)
[2016-03-29] MEDS: MEMANTINE 5 MG TAB PO SCH (21:31)
[2016-03-29 21:47] LABS: CKMB/CK RATIO 3.8 (0-3.0)
[2016-03-29] MEDS ORDERED: METHYLPREDNISOLONE IV 40 MG in SYRINGE 0 ML IV ONE (23:00)
[2016-03-29] MEDS: VANCOMYCIN INJ 1,000 MG in SODIUM CHLORIDE 0.9% 250ML 250 ML IV SCH (23:25)
[2016-03-30] VITALS (13 sets, daily range): BP systolic 97–128; BP diastolic 52–78; PULSE 75–92; TEMP 36.4–36.9; O2SAT 84–95
[2016-03-30] MEDS: PIPERACILL/TAZOBAC IV 3.375 GM in DEXTROSE 5% 100ML 100 ML IV SCH ×3 (01:58→16:39)
[2016-03-30 04:54] LABS: HEMATOCRIT 26.3 % (37-47); MEAN CELL VOLUME 90.7 fL (80-100); MEAN CORPUSCULAR HEMOGLOBIN 28.3 pg (25-34); MEAN CORPUSCULAR HGB CONC 31.2 g/dl (32-36); PLATELET COUNT 329 K/uL (130-400); WHITE BLOOD COUNT 11.34 K/uL (4.8-10.8)
[2016-03-30 05:04] LABS: PROTHROMBIN TIME (PATIENT) 45.7 SECONDS (9.0-12.0)
[2016-03-30 05:07] LABS: BLOOD UREA NITROGEN 12 mg/dl (7-18); BUN/CREATININE RATIO 28.5 (10-20); CARBON DIOXIDE 28 mmol/L (21-32); CHLORIDE 102 mmol/L (98-107); CREATININE 0.41 mg/dl (0.60-1.20); GLUCOSE 120 mg/dl (70-99); MAGNESIUM 2.1 mg/dl (1.8-2.4); POTASSIUM 4.3 mmol/L (3.5-5.1); SODIUM 140 mmol/L (136-145)
[2016-03-30 05:22] LABS: BASO % 0.1 %; BASO ABS # 0.01 K/uL (0-0.2); COMPLETE YES; EOS % 0.4 %; HYPOCHROMIA PRESENT; IG% 1.1 %; LYMPH % 3.4 %; LYMPH ABS # 0.39 K/uL (1.2-3.4); MONO % 4.8 %; NEUT % 90.2 %; POLYCHROMASIA 1+
[2016-03-30] MEDS: DOCUSATE SODIUM 100 MG CAP PO SCH ×2 (08:15→20:24)
[2016-03-30] MEDS: MEMANTINE 5 MG TAB PO SCH ×2 (08:16→20:25)
[2016-03-30] MEDS: METOPROLOL TARTRATE 50 MG TAB PO SCH ×2 (08:16→20:24)
[2016-03-30] MEDS: AZITHROMYCIN 250 MG TAB PO SCH (08:17)
[2016-03-30] MEDS: CALCIUM 600MG + VIT D 400 IU TAB PO SCH ×2 (08:19→16:40)
[2016-03-30] MEDS: IPRATROPIUM BROMIDE/ALBUTEROL respimat INH INH SCH ×4 (08:19→20:24)
[2016-03-30] MEDS: NYSTATIN SUSP 500,000 U/5 ML UDC PO SCH ×4 (08:19→20:24)
[2016-03-30] MEDS: LIDODERM (LIDOCAINE) PATCH 5% TD SCH (08:19)
[2016-03-30] MEDS: ONDANSETRON INJ 2 MG/ML 2 ML VIAL IV PRN ×2 (08:24→20:26)
[2016-03-30] MEDS ORDERED: DOCUSATE SODIUM/SENNA 50/8.6MG TAB PO SCH (09:00)
[2016-03-30] MEDS ORDERED: PANTOprazole SOD 40 MG TAB PO SCH (09:00)
[2016-03-30] MEDS ORDERED: FLUOXETINE HCL 10 MG CAP PO SCH (09:00)
[2016-03-30] MEDS ORDERED: TRAZODONE HCL 50 MG TAB PO SCH (09:00)
[2016-03-30] MEDS ORDERED: DONEPEZIL HCL 5 MG TAB PO SCH (09:00)
[2016-03-30] MEDS ORDERED: FAMOTIDINE 20 MG TAB PO SCH (09:00)
--- NOTE | 2016-03-30 10:04 | Progress Note ---
Subjective Date of Service: Mar 30, 2016. Subjective Pt evaluation today including: conversation w/ patient, conversation w/ family , physical exam, chart review, lab review, review of studies, review of inpatient medication list Saw/examined the patient in room 205 She is doing okay today; in no significant respiratory distress speaking in complete sentences, no accessory muscle use Denies chest pain/palpitations Denies fevers/chills She cannot recall what happened at [facility] that precipitated her being brought in Problem List Medical Problems: (1) Hypoxia Status: Acute (2) Leukocytosis Status: Acute (3) Pneumonitis Status: Acute Review of Systems Constitutional: No chills, No fever Respiratory: + shortness of breath (mild shortness of breath, improving), No cough, No hemoptysis, No sputum, No wheezing Cardiac: No chest pain, No edema, No palpitations Abdomen: No diarrhea, No nausea, No pain, No vomiting Musculoskeletal: + joint pain (chronic bilateral hand/feet pain), + problem reported (right arm swelling) Heme: No abnormal bleeding/bruising Medications Current Inpatient Medications Medications (Trade) Dose Ordered Sig/Jazmyn Route Start Time Stop Time Status Last Admin Dose Admin Acetaminophen (Tylenol Tab) 650 mg Q4H PRN PO 03/29/16 12:15 04/28/16 12:14 Al Hydrox/Mg Hydrox/Simethicone (Maalox Max Susp) 15 ml Q4H PRN PO 03/29/16 12:15 04/28/16 12:14 Ondansetron HCl (Zofran Inj) 4 mg Q6H PRN IV 03/29/16 12:15 04/28/16 12:14 03/30/16 08:24 4 MG Nitroglycerin (Nitrostat Tab) 0.4 mg UD PRN SL 03/29/16 12:15 04/28/16 12:14 Calcium/Vitamin D (Caltrate Plus Tab) 1 tab BIDM PO 03/29/16 18:00 04/28/16 17:59 03/30/16 08:19 1 TAB Docusate Sodium (coLACE CAP) 100 mg BID PO 03/29/16 21:00 04/28/16 20:59 03/30/16 08:15 100 MG Donepezil HCl (Aricept Tab) 5 mg DAILY PO 03/30/16 09:00 04/29/16 08:59 03/30/16 08:18 5 MG Famotidine (Pepcid Tab) 40 mg DAILY PO 03/30/16 09:00 04/29/16 08:59 03/30/16 08:17 40 MG Albuterol/ Ipratropium (Combivent Respimat Inh) 1 puffs QID INH 03/29/16 17:00 04/28/16 16:59 03/30/16 08:19 1 PUFFS Lidocaine (Lidoderm Patch 5%) 1 patch DAILY TD 03/30/16 09:00 04/29/16 08:59 03/30/16 08:19 1 PATCH Magnesium Hydroxide (Milk Of Magnesia Susp) 30 ml DAILY PRN PO 03/29/16 12:15 04/28/16 12:14 Memantine (Namenda Tab) 5 mg BID PO 03/29/16 21:00 04/28/16 20:59 03/30/16 08:16 5 MG Metoprolol Tartrate (Lopressor Tab) 50 mg Q12 PO 03/29/16 21:00 04/28/16 20:59 03/30/16 08:16 50 MG Nystatin (Mycostatin Susp) 5 ml QID PO 03/29/16 17:00 04/08/16 16:59 03/30/16 08:19 5 ML Oxycodone/ Acetaminophen (Percocet 5-325mg Tab) 1 tab HS PRN PO 03/29/16 12:15 04/12/16 12:14 03/29/16 20:03 1 TAB Pantoprazole Sodium (Protonix Tab) 40 mg DAILY PO 03/30/16 09:00 04/29/16 08:59 03/30/16 08:17 40 MG Prednisone (PredniSONE TAB) 10 mg DAILY PO 03/30/16 09:00 04/29/16 08:59 03/30/16 08:18 10 MG Senna/Docusate Sodium (Senokot S Tab) 1 tab DAILY PO 03/30/16 09:00 04/29/16 08:59 03/30/16 08:18 1 TAB Tramadol HCl (Ultram Tab) 50 mg Q6H PRN PO 03/29/16 12:15 04/28/16 12:14 Trazodone HCl (Desyrel Tab) 75 mg DAILY PO 03/30/16 09:00 04/29/16 08:59 03/30/16 08:16 75 MG Miscellaneous 1 ea 1 ea DAILY@21 N/A 03/30/16 21:00 04/29/16 20:59 Vancomycin HCl 1000 mg/Sodium Chloride 270 ml @ 125 mls/hr Q12H IV 03/30/16 00:00 04/05/16 14:59 03/29/16 23:25 125 MLS/HR Piperacillin Sod/ Tazobactam Sod/ Dextrose (Zosyn Iv/D5 100ml) 115 ml @ 28.75 mls/ hr Q8H IV 03/29/16 17:00 04/05/16 16:59 03/30/16 01:58 28.75 MLS/HR Azithromycin (Zithromax Tab) 500 mg QAM PO 03/30/16 09:00 04/06/16 08:59 03/30/16 08:17 500 MG Fluoxetine HCl (Prozac Cap) 10 mg QAM PO 03/30/16 09:00 04/29/16 08:59 03/30/16 08:18 10 MG Folic Acid (Folvite Tab) 1 mg DAILY PO 03/30/16 09:00 04/29/16 08:59 Albuterol Sulfate (Ventolin 0.083% 2.5MG/3ML Neb) 2.5 mg QIDR PRN INH 03/29/16 16:00 04/28/16 15:59 Vancomycin HCl (Consult) 1 ea UD PRN N/A 03/29/16 14:45 04/28/16 14:44 Piperacillin Sod/ Tazobactam Sod (Consult) 1 ea UD PRN N/A 03/29/16 14:45 04/28/16 14:44 Objective Vital Signs Date Time Temp Pulse Resp B/P Pulse Ox O2 Delivery O2 Flow Rate FiO2 03/30/16 07:30 36.5 87 30 128/78 93 CPAP 03/30/16 07:28 82 93 03/30/16 07:20 95 BiPAP 60 03/30/16 04:00 93 BiPAP 60 03/30/16 03:20 36.4 87 33 113/69 95 BiPAP 60 03/30/16 00:05 90 BiPAP 40 03/29/16 23:20 37.2 81 33 104/62 91 BiPAP 40 03/29/16 22:00 86 Nasal Cannula 6.0 03/29/16 20:17 92 93 03/29/16 20:12 36.7 93 18 120/70 88 Nasal Cannula 6.0 03/29/16 20:00 86 Nasal Cannula 6.0 03/29/16 16:02 82 03/29/16 16:00 36.8 88 18 121/67 96 BiPAP 60 03/29/16 15:40 83 18 121/67 98 BiPAP 60 03/29/16 13:50 80 18 102/61 97 BiPAP 60 03/29/16 13:03 86 03/29/16 11:48 88 18 111/68 98 BiPAP 60 03/29/16 10:35 84 18 132/75 98 BiPAP 60 03/29/16 10:23 88 98 03/29/16 09:59 89 20 10/ 91 Nasal Cannula 5.0 Physical Exam General Appearance: no apparent distress Eyes: normal inspection ENT: hearing grossly normal Respiratory/Chest: chest non-tender, lungs clear, normal breath sounds, no respiratory distress, no accessory muscle use Cardiovascular: regular rate, rhythm, no murmur Abdomen: normal bowel sounds, non tender, soft Extremities: normal range of motion, non-tender, normal inspection, no pedal edema (no lower extremity edema), no calf tenderness, + swelling (RUE swelling) , + pertinent finding (chronic rheumatoid changes of hands/feet) Neurologic/Psychiatric: no motor/sensory deficits, alert, normal mood/affect, + pertinent finding (trouble with recalling event that brought her in) Skin: normal color Lymphatic: no adenopathy Laboratory Results Last 24 Hours Test 03/29/16 09:40 03/29/16 09:53 03/29/16 10:02 03/29/16 10:30 White Blood Count 12.59 K/uL Red Blood Count 2.88 M/uL Hemoglobin 8.2 g/dL Hematocrit 26.9 % Mean Corpuscular Volume 93.4 fL Mean Corpuscular Hemoglobin 28.5 pg Mean Corpuscular Hemoglobin Concent 30.5 g/dl Platelet Count 319 K/uL Mean Platelet Volume 9.0 fL Neutrophils (%) (Auto) 82.6 % Lymphocytes (%) (Auto) 3.7 % Monocytes (%) (Auto) 8.3 % Eosinophils (%) (Auto) 4.1 % Basophils (%) (Auto) 0.2 % Neutrophils # (Auto) 10.40 K/uL Lymphocytes # (Auto) 0.47 K/uL Monocytes # (Auto) 1.04 K/uL Eosinophils # (Auto) 0.52 K/uL Basophils # (Auto) 0.02 K/uL RDW Standard Deviation 57.5 fL RDW Coefficient of Variation 16.7 % Immature Granulocyte % (Auto) 1.1 % Immature Granulocyte # (Auto) 0.14 K/uL Nucleated RBC Absolute Count (auto) 0.02 K/uL Nucleated Red Blood Cells % 0.2 % Polychromasia 1+ Prothrombin Time 45.5 SECONDS Prothromb Time International Ratio 4.0 Activated Partial Thromboplast Time 41.4 SECONDS Partial Thromboplastin Ratio 1.6 Sodium Level 138 mmol/L Potassium Level 4.1 mmol/L Chloride Level 100 mmol/L Carbon Dioxide Level 29 mmol/L Anion Gap 9.0 mmol/L Blood Urea Nitrogen 13 mg/dl Creatinine 0.40 mg/dl Est Creatinine Clear Calc Drug Dose 86.3 ml/min Estimated GFR () 110.1 Estimated GFR (Non- 95.0 BUN/Creatinine Ratio 32.9 Random Glucose 108 mg/dl Calcium Level 7.8 mg/dl Total Bilirubin 0.3 mg/dl Aspartate Amino Transf (AST/SGOT) 17 U/L Alanine Aminotransferase (ALT/SGPT) 12 U/L Alkaline Phosphatase 88 U/L Pro-B-Type Natriuretic Peptide 1461 pg/ml Total Protein 5.9 gm/dl Albumin 2.0 gm/dl Globulin 3.9 gm/dl Albumin/Globulin Ratio 0.5 Bedside Troponin I 0.000 ng/ml Bedside Lactic Acid Venous 0.75 mmol/L Influenza Type A Antigen Neg for Influ A Influenza Type B Antigen Neg for Influ B Test 03/29/16 17:45 03/29/16 20:45 03/30/16 04:33 Hemoglobin 8.9 g/dL 8.2 g/dL Hematocrit 29.5 % 26.3 % Arterial Blood pH 7.52 Arterial Blood Partial Pressure CO2 33 mmHg Arterial Blood Partial Pressure O2 133 mmHg Arterial Blood HCO3 27 mmol/L Arterial Blood Oxygen Saturation 97.3 % Arterial Blood Base Excess 3.7 mEq/L Arterial Blood Gas Delivery 60% Tyrell Test POS White Blood Count 11.34 K/uL Red Blood Count 2.90 M/uL Mean Corpuscular Volume 90.7 fL Mean Corpuscular Hemoglobin 28.3 pg Mean Corpuscular Hemoglobin Concent 31.2 g/dl Platelet Count 329 K/uL Mean Platelet Volume 9.0 fL Neutrophils (%) (Auto) 90.2 % Lymphocytes (%) (Auto) 3.4 % Monocytes (%) (Auto) 4.8 % Eosinophils (%) (Auto) 0.4 % Basophils (%) (Auto) 0.1 % Neutrophils # (Auto) 10.23 K/uL Lymphocytes # (Auto) 0.39 K/uL Monocytes # (Auto) 0.54 K/uL Eosinophils # (Auto) 0.04 K/uL Basophils # (Auto) 0.01 K/uL RDW Standard Deviation 55.1 fL RDW Coefficient of Variation 16.7 % Immature Granulocyte % (Auto) 1.1 % Immature Granulocyte # (Auto) 0.13 K/uL Polychromasia 1+ Hypochromasia PRESENT Prothrombin Time 45.7 SECONDS Prothromb Time International Ratio 4.0 Sodium Level 140 mmol/L Potassium Level 4.3 mmol/L Chloride Level 102 mmol/L Carbon Dioxide Level 28 mmol/L Anion Gap 10.0 mmol/L Blood Urea Nitrogen 12 mg/dl Creatinine 0.41 mg/dl Est Creatinine Clear Calc Drug Dose 84.2 ml/min Estimated GFR () 109.2 Estimated GFR (Non- 94.2 BUN/Creatinine Ratio 28.5 Random Glucose 120 mg/dl Calcium Level 8.0 mg/dl Magnesium Level 2.1 mg/dl Total Creatine Kinase 13 U/L Creatine Kinase MB < 0.5 ng/ml Creatine Kinase MB Ratio Troponin I < 0.015 ng/ml Assessment and Plan This is an 85 year old female with PMH of recent surgery at [facility] for compression fracture of T10, multiple PEs on Coumadin, perioperative SVT episode, HTN, HLD, chronic iron deficiency anemia, some underlying dementia, RA on methotrexate and steroids chronically presents with acute respiratory failure Acute Respiratory Failure exact etiology unclear Patient with a hx. of PEs and found to have bilateral PE during post-operative state at [facility]: Her INR is supratherapuetic at 4.0 today CXR on 2/20 Bilateral asymmetric pulmonary airspace opacities right greater than left. Likely diagnostic considerations include a bilateral pneumonitis versus an atypical appearance of asymmetric pulmonary edema. Clinical and radiographic follow-up is recommended Chest U/S was performed as well, but did not show much fluid possible health care associated pneumonia other considerations could include opioid induced respiratory depression, though RR was never low ABGs do not suggest hypercapnic respiratory acidosis appreciate pulm input for now: continue oxygen as needed; continue broad spectrum antibiotics and nebulizers as needed Repeat CXR in AM; echo pending Hx. of Pulmonary Embolism found to have bilateral PE post-operatively now on Coumadin and supratherapeutic Hold Coumadin and recheck INR in AM Iron Deficiency Anemia recent surgery for T10 kyphoplasty Has been at [facility] since then Hgb remains > 8 fecal occult blood pending check H/H daily, transfuse PRN or if SOB worsens Hx. of SVT patient had been on atenolol, which was recently changed to Lopressor due to post-operative episode of SVT currently in NSR, no significant abnormalities noted monitor in tele, continue current meds, cycle cardiac enzymes Right Upper Extremity Swelling possibly due to IV site already on Coumadin and INR is already therapeutic will obtain an U/S Rheumatoid Arthritis patient on chronic steroid and methotrexate therapy holding methotrexate here, continue steroids T10 Kyphoplasty patient not complaining about pain currently will try not to give opioids if pain is controlled DVT ppx Coumadin FULL CODE
--- NOTE | 2016-03-30 12:00 | Cardiology Consultation ---
Cardiology Consultation Date of Consultation: Mar 30, 2016 Requesting Physician: Noemí Attending Oss Architect: Diane (Kyaw Souza PA-C) History of Present Illness Ms. Bell is an 85 year old female who is being seen at the request of Dr. Dowd. Reasons for consultation include chest pain and a recent episode of SVT. Ms. Bell carries a history of rheumatoid arthritis, Alzheimer's disease, past DVT for which she is prescribed chronic Coumadin anticoagulation, and other problems outlined below. In November 2015 she presented to [facility] with acute lower back pain. She was found to have a T12 compression fracture. She was seen by Dr. Modi of Cardiology due to an abnormal EKG and ultimately underwent kyphoplasty without cardiac complication. Left sided rib fractures noted postprocedure. Coumadin anticoagulation resumed. Patient discharged to [facility] on 2015. In February 2016 she was found to be confused and lethargic by family, admitted to [facility] with Influenza. On March 17, 2016 she returned to [facility] with acute back pain and fever. Imaging revealed a probable acute compression fracture at T10, undergoing kyphoplasty by Dr. Chatterjee. Anticoagulation held. Course complicated by acute dyspnea, bilateral PEs, and SVT (likely secondary to the lung insult) for which she received IV Lopressor with spontaneous conversion. At that time Atenolol was switched to Lopressor. Patient discharged to [facility] on 2016. At [facility] she was observed to have acute dyspnea and hypoxemia for which she was transferred to [facility] for further evaluation and treatment. Sp02 was 82% on RA, requiring BiPAP. She was febrile on admission and notes a nonproductive cough. Denies chest pain. Chest x-ray, as per Dr. Bradne, revealed bilateral asymmetric pulmonary airspace opacities, right greater than left. She has been started on IV Zosyn, Vancomycin, and PO azithromycin after receiving Levaquin in the ER. EKG without acute changes. Troponin negative x 2. Echo pending. She denies chest pain to the undersigned. She denies tachypalpitations. Telemetry reveals sinus in the upper 80's. No significant supraventricular or ventricular arrhythmias observed thus far. (Kyaw Souza PA-C) History Past Medical/Surgical History: See above Hypertension Dyslipidemia Iron deficiency anemia Diaphragmatic hernia Osteoporosis Vitamin D deficiency Obesity Diverticulosis Depression Cholecystectomy Hysterectomy Cataract extraction bilaterally Family History: Not notable for cardiac disease. Mother with ovarian cancer. Father with a postoperative infection. Sister with breast cancer. Brother with lung cancer. Social History: Nonsmoker. Exposed to second hand smoke from her . . Seven children. No significant alcohol. No illegal drug use. (Kyaw Souza PA-C) Review Of Systems Review of systems: See above. Decreased appetite. Otherwise negative or noncontributory. (Kyaw Souza PA-C) Allergies Coded Allergies: Codeine (Unverified Adverse Reaction, Severe, vomiting, 03/29/16) Hydromorphone (Unverified Adverse Reaction, Severe, vomiting, 03/29/16) Morphine (Unverified Adverse Reaction, Severe, vomiting, 03/29/16) Medications Reported Home Medications Medications Dose Route/Sig Max Daily Dose Days Date Category Dose Instructions Proventil 0.083% 2.5MG/3ML (Albuterol Sulf) 2.5 Mg/3 Ml Nebu 2.5 Mg INH QID 03/29/16 Rx Ferrous Sulfate 325 Mg Tab 1 Tab PO Q2D 03/29/16 Rx Folic Acid 1 Mg Tab 1 Mg PO DAILY 03/29/16 Rx Prozac (Fluoxetine Hcl) 10 Mg Cap 1 Cap PO QAM 30 03/29/16 Rx Methotrexate 2.5 Mg Tab 15 Mg PO WK 03/29/16 Rx TAKE 15 MG ONCE WEEKLY ON MONDAYS Percocet 5MG/325MG (Oxycodone/Acetaminophen) Tab 1 Tablet PO HS PRN 03/29/16 Reported PAIN Ultram (Tramadol HCl) 50 Mg Tab 50 Mg PO Q6H PRN 03/29/16 Reported Fleet Enema Six Pack (Sodium Phosphates) 1 Maria C Maria C 133 Ml [place] DAILY PRN 03/29/16 Reported ADMINISTER 1 FLEET ENEMA DIALY IF NO BM OR CONSTIPATION PAST 3 DAYS Milk Of Magnesia (Magnesium Hydroxide) 30 Ml Susp 30 Ml PO DAILY PRN 03/29/16 Reported TAKE 30ML DAILY IF NO BM OR CONSTIPATION PAST 1 DAY Jantoven (Warfarin Sodium) 1 Mg Tab 1 Mg PO DAILY 03/29/16 Reported TAKE 1MG DAILY AT 2100 CHECK FOR DAILY WARFARIN ORDERS Trazodone (Trazodone HCl) 50 Mg Tab 75 Mg PO DAILY 03/29/16 Reported TAKE 75MG DAILY AT 2100 Senokot S (Senna/Docusate Sodium) 1 Tab Tab 1 Tab PO DAILY 03/29/16 Reported Prednisone 10 Mg Tab 10 Mg PO DAILY 03/29/16 Reported TAKE 10MG WITH BREAKFAST DAILY Miralax (Polyethylene) 17 Gm Pow 17 Gm PO DAILY 03/29/16 Reported Protonix (Pantoprazole Sodium) 40 Mg Tab 40 Mg PO DAILY 03/29/16 Reported Nystatin Suspension (Nystatin) 1 Ml Susp 5 Ml PO QID 03/29/16 Reported NYSTATIN 1000,000 UNITS/1 ML TAKE 5 ML 4 TIMES DAILY Lopressor (Metoprolol Tartrate) 50 Mg Tab 50 Mg PO Q12 03/29/16 Reported Namenda (Memantine) 5 Mg Tab 5 Mg PO BID 03/29/16 Reported Lidoderm Patch 5% (Lidocaine) 1 Ea Tdsy 1 Patch TOP DAILY 03/29/[address] ONE PATCH DAILY 0700 TO 1900 TO PAINFUL REGION Combivent Respimat (Ipratropium-Albuterol) 1 Aer Aer 1 Puffs INH QID 03/29/16 Reported ONE INHALATION FOUR TIMES A DAY NOT TO EXCEED 6 INHALATIONS / 24 HOURS Pepcid (Famotidine) 20 Mg Tab 40 Mg PO DAILY 03/29/16 Reported TAKE 40 MG DAILY AT 2100 Aricept (Donepezil HCl) 5 Mg Tab 1 Tab PO DAILY 90 03/29/16 Reported TAKE 5 MG DAILY AT 2100 Docusate Sodium 100 Mg Cap 1 Cap PO BID 7 03/29/16 Reported TAKE 1 CAPSULE TWICE DAILY AT 0900 AND 1700 Flexeril (Cyclobenzaprine Hcl) 5 Mg Tab 5 Mg PO BID 03/29/16 Reported PRN Os-Scott 500 Plus D (Calcium/Vitamin D) Tab 1 Tab PO BIDM 03/29/16 Reported Augmentin 500MG (Amoxicillin & Pot Clavulanate) 1 Tab Tab 500 Mg PO TIDM 10 03/29/16 Reported (Kyaw Souza PA-C) Physical Exam Vital Signs (Last 8hrs): Last 8 Hrs Date Time Temp Pulse Resp B/P Pulse Ox O2 Delivery O2 Flow Rate FiO2 03/30/16 07:30 36.5 87 30 128/78 93 CPAP 03/30/16 07:28 82 93 03/30/16 07:20 95 BiPAP 60 03/30/16 04:00 93 BiPAP 60 03/30/16 03:20 36.4 87 33 113/69 95 BiPAP 60 General Appearance: Alert and Oriented to person and place but not to time. NAD. Not currently Bipap'ed. Head: Normocephalic Atraumatic. Eyes: PER, EOMI, conjunctiva and sclera clear Neck: Supple. No carotid bruits appreciated though examination may be hindered by the high flow oxygen. No JVD. No HJD. Respiratory: Diffuse dry crackles. Decreased breath sounds. No wheeze. Cardiovascular: RRR, 88 bpm. I did not appreciate any murmur or rub. Abdomen: +BS. I did not appreciate an abdominal bruits. Soft. Nontender. Extremities: No edema, no clubbing or cyanosis. Neuro: No focal deficits. Psychiatric: Normal affect. (Kyaw Souza, BRIAN) Data Last 24 Hours Test 03/29/16 17:45 03/29/16 20:45 03/30/16 04:33 Hemoglobin 8.9 g/dL 8.2 g/dL Hematocrit 29.5 % 26.3 % Arterial Blood pH 7.52 Arterial Blood Partial Pressure CO2 33 mmHg Arterial Blood Partial Pressure O2 133 mmHg Arterial Blood HCO3 27 mmol/L Arterial Blood Oxygen Saturation 97.3 % Arterial Blood Base Excess 3.7 mEq/L Arterial Blood Gas Delivery 60% Tyrell Test POS White Blood Count 11.34 K/uL Red Blood Count 2.90 M/uL Mean Corpuscular Volume 90.7 fL Mean Corpuscular Hemoglobin 28.3 pg Mean Corpuscular Hemoglobin Concent 31.2 g/dl Platelet Count 329 K/uL Mean Platelet Volume 9.0 fL Neutrophils (%) (Auto) 90.2 % Lymphocytes (%) (Auto) 3.4 % Monocytes (%) (Auto) 4.8 % Eosinophils (%) (Auto) 0.4 % Basophils (%) (Auto) 0.1 % Neutrophils # (Auto) 10.23 K/uL Lymphocytes # (Auto) 0.39 K/uL Monocytes # (Auto) 0.54 K/uL Eosinophils # (Auto) 0.04 K/uL Basophils # (Auto) 0.01 K/uL RDW Standard Deviation 55.1 fL RDW Coefficient of Variation 16.7 % Immature Granulocyte % (Auto) 1.1 % Immature Granulocyte # (Auto) 0.13 K/uL Polychromasia 1+ Hypochromasia PRESENT Prothrombin Time 45.7 SECONDS Prothromb Time International Ratio 4.0 Sodium Level 140 mmol/L Potassium Level 4.3 mmol/L Chloride Level 102 mmol/L Carbon Dioxide Level 28 mmol/L Anion Gap 10.0 mmol/L Blood Urea Nitrogen 12 mg/dl Creatinine 0.41 mg/dl Est Creatinine Clear Calc Drug Dose 84.2 ml/min Estimated GFR () 109.2 Estimated GFR (Non- 94.2 BUN/Creatinine Ratio 28.5 Random Glucose 120 mg/dl Calcium Level 8.0 mg/dl Magnesium Level 2.1 mg/dl Total Creatine Kinase 13 U/L Creatine Kinase MB < 0.5 ng/ml Creatine Kinase MB Ratio Troponin I < 0.015 ng/ml CXR, Chest US, EKG, and telemetry reviewed. See above. (Kyaw Souza PA-C) Assessment & Plan 85 year old female with recent bilateral postoperative PE's admitted to [facility] on 03/29/2016 with acute hypoxic respiratory failure appearing to be primarily due to health care acquired pneumonia. She carries a longstanding history of rheumatoid arthritis treated with methotrexate raising concern for hypersensitivity pneumonitis. Recent episode of SVT likely secondary to the above. Hypertension Dementia RECOMMENDATIONS/PLAN: Await TTE interpretation Continue Metoprolol tartrate. Continue chronic Coumadin anticoagulation ? need for IV steroid therapy Further recommendations pending ongoing hospitalization as well as evaluation by Dr. Contreras. (Kyaw Souza PA-C) CARDIOLOGY ATTENDING ADDENDUM: The patient was seen and personally examined. Agree with Kyaw Souza PA-C's findings and plans as documented above with additions as noted below. S: Denies chest pain. Still with significant hypoxia. Exam: Last Vital Signs Documentation Date Time Temp Pulse Resp B/P Pulse Ox O2 Delivery O2 Flow Rate FiO2 03/30/16 16:00 89 High Flow Oxygen 15.0 60 03/30/16 15:46 36.9 75 28 112/61 Decreases BS at the bases CV : regular, suboptimal examination due to noise of high flow oxygen Data: Summary of TTEcho report from today, 03/30/16: * -- Conclusions -- * The left ventricular wall motion is normal. * Ejection Fraction = 60-65%. * Moderate aortic valve sclerosis is present. * Aortic stenosis is absent. * Mild aortic regurgitation. * There is mild mitral regurgitation. * The right ventricle is normal size. * The right ventricular systolic function is qualitatively normal. * Grade I diastolic dysfunction, (abnormal relaxation pattern). * Doppler findings do not suggest pulmonary hypertension. Impression: As above. Plan: Normal LVEF. Normal RVEF. Given CXR appearance and elevated BNP there could be a component of diastolic HF , but primary problem likely HCAP with underlying recent pulmonary embolism. Given need for IVF via IV antibiotics , may have to start low dose furosemide to keep Intake / Output even. Continue coumadin. Monitor H/ HCT. (Brandyn Contreras,D.O.)
[2016-03-30] MEDS: VANCOMYCIN INJ 1,000 MG in SODIUM CHLORIDE 0.9% 250ML 250 ML IV SCH (13:26)
--- NOTE | 2016-03-30 14:24 | Pulmonology Progress Note ---
Pulmonary Progress Note Date of Service Mar 30, 2016. Attending Dr. Wilkinson Subjective Comfortable on BiPAP. Reports no change in dyspnea. Denies pain. Objective 85-yo female admitted to [facility] 03/29/16 with fever and hypoxia. Prior records were reviewed. Recent PMHx notable for admission in [facility] for kyphoplasty- thoracic compression fracture with post-operative course complicated by bilateral PE (CTA 03/24/16 - distal RLL emboli). She was discharged to [facility]. PMhx includes: HTN, depression, DVT/PE, Hyperlipidemia, h/o Vitamin D-deficiency , rheumatoid arthritis on prednisone and methotrexate, h/o T10 & T12 compression fracture. On admission she was noted to be hypoxic with bilateral airspace opacities on CXR. Influent PCR: negative. No lactic acidosis. ABG with partially compensated hyperventilation. 03/29/16: 7.52/33/133-60%/27 (on BiPAP i10/e5 60%). Chest Ultrasound: small right pleural effusion. She is treated with azithromycin, vancomycin, pip-tazo, nystating and albuterol-ipratropium. Today: - WBC; 11.34 (decreased), Hgb/Hct/Plts: 8.2/26.3/329 - CO2: 28, Cr: 0.41, INR: 4 - Afebrile, HD stable, tolerating BiPAP Physical Exam: Constitutional: WD chronically ill appearing female. Sleeping on BiPAP. No acute distress Head: + facial symmetry. BiPAP with good seal Eyes: EOMi, PERRLA no injection Respiratory: Non-labored shallow respirations with BiPAP. Scattered crackles bilaterally. No wheeze CV: RRR, no MRG appreciated. Warm and perfused peripherally. Abdomen: Soft, active bowel sounds MSK/Extremities: Moving and developed symmetrically. ++ edema with erythema of the RUE. Lateral orientation of MCPs and MTPs bilaterally Neurologic: Alert. Good data recall. Somewhat somnolent. Assessment & Plan 85-yo female with h/o rheumatoid arthritis on methotrexate and prednisone with h /o recent hospital admission and bilateral PE admitted with acute hypoxic respiratory failure. Evidence of hyperventilation on BiPAP - oxygenating well. 1. Echocardiogram: pending 2. Trial High Flow nasal cannula: 50L/min - start 60% and wean FiO2 to 50% if able - Obtain VBG 60-minutes after transition - Respiratory aware 3. Anticoagulation: supra-therapeutic Patient discussed and examined and agree with plan above Data Medications: Current Inpatient Medications Medications (Trade) Dose Ordered Sig/Jazmyn Route Start Time Stop Time Status Last Admin Dose Admin Acetaminophen (Tylenol Tab) 650 mg Q4H PRN PO 03/29/16 12:15 04/28/16 12:14 Al Hydrox/Mg Hydrox/Simethicone (Maalox Max Susp) 15 ml Q4H PRN PO 03/29/16 12:15 04/28/16 12:14 Ondansetron HCl (Zofran Inj) 4 mg Q6H PRN IV 03/29/16 12:15 04/28/16 12:14 03/30/16 08:24 4 MG Nitroglycerin (Nitrostat Tab) 0.4 mg UD PRN SL 03/29/16 12:15 04/28/16 12:14 Calcium/Vitamin D (Caltrate Plus Tab) 1 tab BIDM PO 03/29/16 18:00 04/28/16 17:59 03/30/16 08:19 1 TAB Docusate Sodium (coLACE CAP) 100 mg BID PO 03/29/16 21:00 04/28/16 20:59 03/30/16 08:15 100 MG Donepezil HCl (Aricept Tab) 5 mg DAILY PO 03/30/16 09:00 04/29/16 08:59 03/30/16 08:18 5 MG Famotidine (Pepcid Tab) 40 mg DAILY PO 03/30/16 09:00 04/29/16 08:59 03/30/16 08:17 40 MG Albuterol/ Ipratropium (Combivent Respimat Inh) 1 puffs QID INH 03/29/16 17:00 04/28/16 16:59 03/30/16 12:34 1 PUFFS Lidocaine (Lidoderm Patch 5%) 1 patch DAILY TD 03/30/16 09:00 04/29/16 08:59 03/30/16 08:19 1 PATCH Magnesium Hydroxide (Milk Of Magnesia Susp) 30 ml DAILY PRN PO 03/29/16 12:15 04/28/16 12:14 Memantine (Namenda Tab) 5 mg BID PO 03/29/16 21:00 04/28/16 20:59 03/30/16 08:16 5 MG Metoprolol Tartrate (Lopressor Tab) 50 mg Q12 PO 03/29/16 21:00 04/28/16 20:59 03/30/16 08:16 50 MG Nystatin (Mycostatin Susp) 5 ml QID PO 03/29/16 17:00 04/08/16 16:59 03/30/16 12:35 5 ML Oxycodone/ Acetaminophen (Percocet 5-325mg Tab) 1 tab HS PRN PO 03/29/16 12:15 04/12/16 12:14 03/29/16 20:03 1 TAB Pantoprazole Sodium (Protonix Tab) 40 mg DAILY PO 03/30/16 09:00 04/29/16 08:59 03/30/16 08:17 40 MG Prednisone (PredniSONE TAB) 10 mg DAILY PO 03/30/16 09:00 04/29/16 08:59 03/30/16 08:18 10 MG Senna/Docusate Sodium (Senokot S Tab) 1 tab DAILY PO 03/30/16 09:00 04/29/16 08:59 03/30/16 08:18 1 TAB Tramadol HCl (Ultram Tab) 50 mg Q6H PRN PO 03/29/16 12:15 04/28/16 12:14 Trazodone HCl (Desyrel Tab) 75 mg DAILY PO 03/30/16 09:00 04/29/16 08:59 03/30/16 08:16 75 MG Miscellaneous 1 ea 1 ea DAILY@21 N/A 03/30/16 21:00 04/29/16 20:59 Vancomycin HCl 1000 mg/Sodium Chloride 270 ml @ 125 mls/hr Q12H IV 03/30/16 00:00 04/05/16 14:59 03/30/16 13:26 125 MLS/HR Piperacillin Sod/ Tazobactam Sod/ Dextrose (Zosyn Iv/D5 100ml) 115 ml @ 28.75 mls/ hr Q8H IV 03/29/16 17:00 04/05/16 16:59 03/30/16 09:45 28.75 MLS/HR Azithromycin (Zithromax Tab) 500 mg QAM PO 03/30/16 09:00 04/06/16 08:59 03/30/16 08:17 500 MG Fluoxetine HCl (Prozac Cap) 10 mg QAM PO 03/30/16 09:00 04/29/16 08:59 03/30/16 08:18 10 MG Folic Acid (Folvite Tab) 1 mg DAILY PO 03/30/16 09:00 04/29/16 08:59 03/30/16 09:45 1 MG Albuterol Sulfate (Ventolin 0.083% 2.5MG/3ML Neb) 2.5 mg QIDR PRN INH 03/29/16 16:00 04/28/16 15:59 Vancomycin HCl (Consult) 1 ea UD PRN N/A 03/29/16 14:45 04/28/16 14:44 Piperacillin Sod/ Tazobactam Sod (Consult) 1 ea UD PRN N/A 03/29/16 14:45 04/28/16 14:44 I & O: 24-Hour Column 03/30/16 07:59 Intake Total 980 ml Output Total 300 ml Balance 680 ml Vital Signs: Date Time Temp Pulse Resp B/P Pulse Ox O2 Delivery O2 Flow Rate FiO2 03/30/16 12:00 BiPAP 60 03/30/16 12:00 93 Non-Rebreather 15.0 03/30/16 11:50 36.5 82 22 119/62 90 Non-Rebreather 15.0 03/30/16 07:30 36.5 87 30 128/78 93 CPAP 03/30/16 07:28 82 93 03/30/16 07:20 95 BiPAP 60 03/30/16 04:00 93 BiPAP 60 03/30/16 03:20 36.4 87 33 113/69 95 BiPAP 60 03/30/16 00:05 90 BiPAP 40 03/29/16 23:20 37.2 81 33 104/62 91 BiPAP 40 03/29/16 22:00 86 Nasal Cannula 6.0 03/29/16 20:17 92 93 03/29/16 20:12 36.7 93 18 120/70 88 Nasal Cannula 6.0 03/29/16 20:00 86 Nasal Cannula 6.0 03/29/16 16:02 82 03/29/16 16:00 36.8 88 18 121/67 96 BiPAP 60 03/29/16 15:40 83 18 121/ 98 BiPAP 60 Laboratory Results: Last 24 Hours Test 03/29/16 17:45 03/29/16 20:45 03/30/16 04:33 Hemoglobin 8.9 g/dL 8.2 g/dL Hematocrit 29.5 % 26.3 % Arterial Blood pH 7.52 Arterial Blood Partial Pressure CO2 33 mmHg Arterial Blood Partial Pressure O2 133 mmHg Arterial Blood HCO3 27 mmol/L Arterial Blood Oxygen Saturation 97.3 % Arterial Blood Base Excess 3.7 mEq/L Arterial Blood Gas Delivery 60% Tyrell Test POS White Blood Count 11.34 K/uL Red Blood Count 2.90 M/uL Mean Corpuscular Volume 90.7 fL Mean Corpuscular Hemoglobin 28.3 pg Mean Corpuscular Hemoglobin Concent 31.2 g/dl Platelet Count 329 K/uL Mean Platelet Volume 9.0 fL Neutrophils (%) (Auto) 90.2 % Lymphocytes (%) (Auto) 3.4 % Monocytes (%) (Auto) 4.8 % Eosinophils (%) (Auto) 0.4 % Basophils (%) (Auto) 0.1 % Neutrophils # (Auto) 10.23 K/uL Lymphocytes # (Auto) 0.39 K/uL Monocytes # (Auto) 0.54 K/uL Eosinophils # (Auto) 0.04 K/uL Basophils # (Auto) 0.01 K/uL RDW Standard Deviation 55.1 fL RDW Coefficient of Variation 16.7 % Immature Granulocyte % (Auto) 1.1 % Immature Granulocyte # (Auto) 0.13 K/uL Polychromasia 1+ Hypochromasia PRESENT Prothrombin Time 45.7 SECONDS Prothromb Time International Ratio 4.0 Sodium Level 140 mmol/L Potassium Level 4.3 mmol/L Chloride Level 102 mmol/L Carbon Dioxide Level 28 mmol/L Anion Gap 10.0 mmol/L Blood Urea Nitrogen 12 mg/dl Creatinine 0.41 mg/dl Est Creatinine Clear Calc Drug Dose 84.2 ml/min Estimated GFR () 109.2 Estimated GFR (Non- 94.2 BUN/Creatinine Ratio 28.5 Random Glucose 120 mg/dl Calcium Level 8.0 mg/dl Magnesium Level 2.1 mg/dl Total Creatine Kinase 13 U/L Creatine Kinase MB < 0.5 ng/ml Creatine Kinase MB Ratio Troponin I < 0.015 ng/ml
--- NOTE | 2016-03-30 15:45 | DIAGNOSTIC IMAGING REPORT ---
RIGHT UPPER EXTREMITY VENOUS DOPPLER CLINICAL HISTORY: Right upper extremity swelling COMPARISON STUDY: No previous studies for comparison. FINDINGS: The right internal jugular, subclavian, axillary, brachial, basilic, radial and ulnar veins are patent. Edema within the right forearm was noted. No discrete fluid collection is identified. IMPRESSION: No deep venous thrombus identified within the right upper extremity Electronically signed by: Girish Bryant M.D. 03/30/2016 3:44 PM Dictated Date/Time: 03/30/2016 3:43 PM
--- NOTE | 2016-03-30 16:51 | ECHOCARDIOGRAM REPORT ---
*NOTICE TO RECEIVING DEMOCRAT AGENCY This information is strictly Confidential and protected under [place] law. [place] law prohibits you from making any further disclosure of this information unless further disclosure is expressly permitted by the written consent of the person to whom it pertains or is authorized by law. A general authorization for the release of medical or other information is not sufficient for this purpose. Hospital accepts no responsibility if the information is made available to any other person, INCLUDING THE PATIENT. Interpretation Summary * Name: MINOR WOMACK Study Date: 03/30/2016 06:45 AM BP: 111/68 mmHg * Patient Location: [facility] HR: 86 * : 1930 (M/d/yyyy) Gender: Female Height: 59 in * Age: 85 yrs Ethnicity: [place] Weight: 149 lb * Ordering Physician: Dmitriy Dowd * Referring Physician: Paradise Causey * Performed By: Jo Sparks * * Reason For Study: CHF * BSA: 1.6 m2 * -- Conclusions -- * The left ventricular wall motion is normal. * Ejection Fraction = 60-65%. * Moderate aortic valve sclerosis is present. * Aortic stenosis is absent. * Mild aortic regurgitation. * There is mild mitral regurgitation. * The right ventricle is normal size. * The right ventricular systolic function is qualitatively normal. * Grade I diastolic dysfunction, (abnormal relaxation pattern). * Doppler findings do not suggest pulmonary hypertension. Procedure Details * A complete two-dimensional transthoracic echocardiogram was performed (2D, M-mode, Doppler and color flow Doppler). * The study was technically difficult. * There were technical limitations due to patient'spoor positioning Left Ventricle * The left ventricle is normal in size. * There is normal left ventricular wall thickness. * Left ventricular systolic function is normal. * Ejection Fraction = 60-65%. * The left ventricular wall motion is normal. Right Ventricle * The right ventricle is normal size. * The right ventricular systolic function is qualitatively normal. Atria * The left atrium is moderately dilated. * Right atrial size is normal. * There is no evidence of atrial septal defect, but resolution does not allow assessment for a patent foramen ovale. Mitral Valve * There is mild mitral annular calcification. * There is no mitral valve stenosis. * There is mild mitral regurgitation. Tricuspid Valve * The tricuspid valve is normal. * There is no tricuspid stenosis. * Significant tricuspid regurgitation is absent. * Doppler findings do not suggest pulmonary hypertension. Aortic Valve * The aortic valve is trileaflet. * Moderate aortic valve sclerosis is present. * Aortic stenosis is absent. * Mild aortic regurgitation. Pulmonic Valve * The pulmonary valve is not well seen, but the Doppler examination is normal without significant regurgitation or stenosis. Great Vessels * The aortic root and proximal ascending aorta are normal sized. Pericardium/Pleural * There is no pericardial effusion. Great Vessels * Normal inferior vena cava diameter and respiratory variation suggests normal central venous pressure. * Normal inferior vena cava size and collapsability with sniff indicates a normal right atrial pressure of 3 mmHg Left Ventricular Diastolic Function * Grade I diastolic dysfunction, (abnormal relaxation pattern). MMode 2D Measurements and Calculations IVSd 1.1 cm IVSs 1.6 cm LVIDd 4.8 cm LVIDs 3.1 cm LVPWd 1.3 cm LVPWs 1.6 cm IVS/LVPW 0.88 FS 34.6 % EDV(Teich) 106.8 ml ESV(Teich) 38.9 ml EF(Teich) 63.6 % EDV(cubed) 109.6 ml ESV(cubed) 30.7 ml EF(cubed) 72.0 % % IVS thick 47.8 % % LVPW thick 29.5 % LV mass(C)d 212.2 grams LV mass(C)dI 130.4 grams/m\S\2 LV mass(C)s 191.3 grams LV mass(C)sI 117.6 grams/m\S\2 SV(Teich) 67.9 ml SI(Teich) 41.7 ml/m\S\2 SV(cubed) 78.9 ml SI(cubed) 48.5 ml/m\S\2 ACS 1.3 cm LA dimension 4.5 cm asc Aorta Diam 3.7 cm LVOT diam 1.9 cm LVOT area 3.0 cm\S\2 LVAd ap4 23.8 cm\S\2 LVLd ap4 6.6 cm EDV(MOD-sp4) 70.9 ml EDV(sp4-el) 72.7 ml LVAs ap4 13.3 cm\S\2 LVLs ap4 5.9 cm ESV(MOD-sp4) 25.2 ml ESV(sp4-el) 25.5 ml EF(MOD-sp4) 64.5 % EF(sp4-el) 65.0 % LVAd ap2 19.2 cm\S\2 LVLd ap2 6.4 cm EDV(MOD-sp2) 47.9 ml EDV(sp2-el) 49.1 ml LVAs ap2 10.9 cm\S\2 LVLs ap2 5.9 cm ESV(MOD-sp2) 17.6 ml ESV(sp2-el) 17.2 ml EF(MOD-sp2) 63.3 % EF(sp2-el) 64.9 % LVLd %diff -3.62 % EDV(MOD-bp) 59.4 ml LVLs %diff -0.40 % ESV(MOD-bp) 21.0 ml EF(MOD-bp) 64.7 % SV(MOD-sp4) 45.8 ml SI(MOD-sp4) 28.1 ml/m\S\2 SV(MOD-sp2) 30.4 ml SI(MOD-sp2) 18.7 ml/m\S\2 SV(MOD-bp) 38.5 ml SI(MOD-bp) 23.6 ml/m\S\2 SV(sp4-el) 47.2 ml SI(sp4-el) 29.0 ml/m\S\2 SV(sp2-el) 31.8 ml SI(sp2-el) 19.6 ml/m\S\2 Doppler Measurements and Calculations MV E max elier 110.0 cm/sec MV A max elier 108.3 cm/sec MV E/A 1.0 MV dec time 0.16 sec Ao V2 max 167.7 cm/sec Ao max PG 11.3 mmHg Ao max PG (full) 8.2 mmHg MIKE(V,A) 1.6 cm\S\2 MIKE(V,D) 1.6 cm\S\2 AI max elier 365.0 cm/sec AI max PG 53.3 mmHg AI dec slope 217.6 cm/sec\S\2 AI P1/2t 491.4 msec LV V1 max PG 3.1 mmHg LV V1 mean PG 1.1 mmHg LV V1 max 87.7 cm/sec LV V1 mean 45.3 cm/sec LV V1 VTI 19.6 cm SV(LVOT) 58.5 ml SI(LVOT) 35.9 ml/m\S\2 PA V2 max 71.3 cm/sec PA max PG 2.0 mmHg PI end-d elier 154.7 cm/sec TR max elier 336.6 cm/sec
[2016-03-30 17:42] LABS: VEN BLD GAS O2 SATURATION 66.5 %; VEN BLOOD GAS BASE EXCESS 5.2 mmol/L
[2016-03-30] MEDS: OXYCODONE/ACETAMINOPHEN 5-325 TAB PO PRN (20:25)
[2016-03-31 00:05] VITALS: O2SAT 91
[2016-03-31] MEDS: PIPERACILL/TAZOBAC IV 3.375 GM in DEXTROSE 5% 100ML 100 ML IV SCH ×2 (00:10→09:11)
[2016-03-31 03:00] VITALS: BP 128/73; PULSE 101; O2SAT 91
[2016-03-31] MEDS: ONDANSETRON INJ 2 MG/ML 2 ML VIAL IV PRN (03:07)
[2016-03-31] MEDS ORDERED: FUROSEMIDE INJ 40 MG in SYRINGE 0 ML IV STA (03:41)
[2016-03-31] MEDS ORDERED: LORAZEPAM 2 MG/ML 1 ML VIAL ONE (03:41)
[2016-03-31] MEDS ORDERED: RAPID SEQUENCE INDUCTION BAG ONE (04:15)
[2016-03-31] MEDS ORDERED: FENTANYL 1250MCG/250ML NSS 250 ML IV STA (04:32)
[2016-03-31] MEDS ORDERED: MIDAZOLAM 125MG/250ML D5W 250 ML IV STA (04:32)
[2016-03-31 04:42] VITALS: BP 112/59; PULSE 113; TEMP 38.5; O2SAT 90
[2016-03-31] MEDS ORDERED: FENTANYL CITRATE INJ 50 MCG/1 ML 2 ML VIAL ONE ×2 (04:45→06:10)
[2016-03-31] MEDS ORDERED: PROPOFOL IV EMULSION 10 MG/ML 100 ML VIAL IV ONE (04:45)
[2016-03-31] MEDS ORDERED: FENTANYL CITRATE 1250MCG/250ML NSS ONE (04:46)
--- NOTE | 2016-03-31 04:47 | EMERGENCY ROOM VISIT NOTE ---
ED Visit Note Coded purple response: Endotracheal Intubation Indication: respiratory failure The patient was on 60% O2 saturation on BiPAP. BiPAP was removed and BVM was used. Suction, airway equipment, RSI drugs, respiratory equipment, and appropriate personnel were prepared prior to the initiation of the procedure. A time out was taken. Induction was performed with 20 mg of IV etomidate. After observing the clinical benefit of the medications, Dr. Camacho attempted intubation with the glide scope under my observation. He was unsuccessful. The patient was again bagged up to an O2 saturation of 92%. The airway was easily visualized utilizing glide scope. A 7.5 size ETT tube was placed atraumatically to 22 cm at the lip using standard technique. The cuff inflated without signs of malfunction. Initially there were diminished breath sounds of the left lung the tube was pulled back. There were bilateral breath sounds, positive colormetric change, no gastric sounds, and post procedure pulse oximetry was 100 %. Post intubation sedation was administered using Versed. There were no complications.
[2016-03-31] MEDS ORDERED: FENTANYL 1250MCG/250ML NSS IV PRN (05:15)
[2016-03-31] MEDS ORDERED: MIDAZOLAM 125MG/250ML D5W 250 ML IV PRN (05:15)
[2016-03-31 05:40] VITALS: BP 89/63; PULSE 125; O2SAT 96
[2016-03-31] MEDS ORDERED: NURSING VERBAL MED ORDER ONE (05:40)
[2016-03-31 06:06] VITALS: BP 109/90; PULSE 134; O2SAT 96
[2016-03-31] MEDS ORDERED: PROPOFOL IV EMULSION 10 MG/ML 100 ML VIAL IV PRN (06:30)
[2016-03-31] MEDS ORDERED: FENTANYL CITRATE INJ 50 MCG/1 ML 2 ML VIAL IV PRN (06:30)
[2016-03-31 06:36] LABS: BUN/CREATININE RATIO 16.5 (10-20); CALCIUM 7.9 mg/dl (8.5-10.1); CREATININE 0.8 mg/dl (0.60-1.20)
[2016-03-31] MEDS ORDERED: METHYLPREDNISOLONE IV 125 MG in SYRINGE 0 ML IV STA (06:40)
--- NOTE | 2016-03-31 06:49 | DIAGNOSTIC IMAGING REPORT ---
CHEST ONE VIEW PORTABLE CLINICAL HISTORY: SOB COMPARISON STUDY: 03/29/2016 FINDINGS: The heart remains enlarged. There are bilateral pulmonary airspace opacities, slightly improved on the right, slightly progressive on the left. No pneumothorax is visualized.[ IMPRESSION: Extensive bilateral pulmonary airspace opacities. Electronically signed by: Dameon Braden M.D. 03/31/2016 6:48 AM Dictated Date/Time: 03/31/2016 6:45 AM
--- NOTE | 2016-03-31 07:06 | DIAGNOSTIC IMAGING REPORT ---
CHEST ONE VIEW PORTABLE CLINICAL HISTORY: Respiratory failure COMPARISON STUDY: Earlier in the morning FINDINGS: There is an endotracheal tube positioned within the right mainstem bronchus. This finding will be called to the floor. There is extensive subcutaneous emphysema present. There are bilateral pulmonary airspace opacities.[ The endotracheal cuff appears overinflated. On review of a CT scan performed shortly following this chest x-ray, there is suspected tracheal wall disruption. This finding was discussed with the radiologist who will be dictating the chest CT. This CT scan of the chest will be dictated separately and appropriate findings will be called to the floor. IMPRESSION: 1. Interval development of extensive subcutaneous emphysema 2. Right mainstem bronchus intubation 3. Extensive bilateral airspace opacities. Electronically signed by: Dameon Braden M.D. 03/31/2016 7:04 AM Dictated Date/Time: 03/31/2016 6:56 AM
[2016-03-31] MEDS ORDERED: SODIUM CHLORIDE 0.9% 500ML 500 ML IV ONE ×2 (07:15→07:45)
[2016-03-31] MEDS ORDERED: DILTIAZEM BOLUS / DRIP IV STA (07:21)
[2016-03-31] MEDS ORDERED: TRIMETH IV SCH ×2 (07:30→10:00)
[2016-03-31] MEDS ORDERED: SULFA IV SCH ×2 (07:30→10:00)
[2016-03-31] MEDS ORDERED: DILUENT IV SCH (07:30)
[2016-03-31] MEDS ORDERED: DILTIAZEM HCL INJ 5 MG in SYRINGE 0 ML IV ONE (07:45)
[2016-03-31] MEDS ORDERED: SODIUM CHLORIDE 0.9% 1000ML 1,000 ML IV SCH (07:45)
[2016-03-31] MEDS ORDERED: DILTIAZEM HCL INJ 125 MG in DEXTROSE 5% 100ML IV PRN (07:45)
[2016-03-31] MEDS ORDERED: DILTIAZEM HCL 5 MG/ML 5 ML VIAL IV ONE (07:45)
[2016-03-31 07:49] LABS: COMPLETE YES; EOSINOPHIL % 0.9 %; HEMATOCRIT 26.3 % (37-47); HYPOCHROMIA PRESENT; LYMPHOCYTE % 1.7 %; MEAN CORPUSCULAR HEMOGLOBIN 29.1 pg (25-34); MEAN CORPUSCULAR HGB CONC 31.9 g/dl (32-36); MEAN PLATELET VOLUME 9.1 fL (7.4-10.4); NEUTROPHILS % 96.5 %; PLATELET COUNT 421 K/uL (130-400); PROTHROMBIN TIME (PATIENT) 50.4 SECONDS (9.0-12.0); RED BLOOD COUNT 2.89 M/uL (4.2-5.4); TEAR DROP CELLS 1+; WHITE BLOOD COUNT 23.65 K/uL (4.8-10.8)
[2016-03-31 08:00] VITALS: BP_SYST 105; BP_SYST 94; BP_DIAS 33; BP_DIAS 61; PULSE 106; TEMP 37.5; O2SAT 95
--- NOTE | 2016-03-31 08:02 | Pulmonology Progress Note ---
Pulmonary Progress Note Date of Service Mar 31, 2016. Attending Renaldo Wilkinson Subjective Patient currently intubated and obtunded unable to interact at this time. Objective 85-year-old female admitted to 26/09/2016 for progressive hypoxemia and interstitial lung changes. Over the evening shift acute decompensation with pneumomediastinum requiring intubation. Today: -Serum studies pending -ABG 03/29/2016: 7.52/33/133/27 on 60% FiO2 -ABG 03/30/2016: 7.47/44--- corrected--7.50/35 Physical Exam: Gen.: Intubated and sedated Respiratory: Diffuse subcutaneous emphysema unable to appreciate breath sounds at this time Cardiac: To palpate regular rate and rhythm but unable to auscultate Abdomen: Enlarged decreased breath sounds Skin: Diffuse subcutaneous emphysema encompassing the upper one third of the bilateral thorax as well as the face/periorbital regions CXR 03/31/16 (0452) diffuse interstitial lung changes with notable diffuse subcutaneous emphysema bilaterally, right mainstem intubation Assessment & Plan 85-year-old female with chronic rheumatoid arthritis on methotrexate and prednisone hospitalized for progressive lung disease and bilateral pulmonary emboli: Next line #1 Pneumothorax: Patient most likely has pneumothorax secondary to combination of interstitial lung disease of unknown acuity and positive pressure ventilation with bronchopleural fistula at this time. Patient is on mechanical ventilation suggest we drop the PEEP to zero continue 100% FiO2 at this time repeat ABG and readjust based off findings. I've placed several cutaneous angiocaths and remove as much of the subcutaneous areas I can via these angiocaths. We'll continue to help decrease mechanical RVD. #2 ILD: At this time patient might have acute onset ILD versus pneumonitis or possibly even chronic from chronic rheumatoid arthritis or methotrexate induced pneumonitis. At this time I have initiated patient on steroid therapy at 1 mg/ kg. I have also initiated Bactrim therapy for chronic or possible PCP secondary to chronic immunosuppressed state. #3 pulmonary emboli: INR continues to be supratherapeutic will continue to monitor blood patient's acute status might require more aggressive interventions and reversal in the next 24 hours. Data Medications: Current Inpatient Medications Medications (Trade) Dose Ordered Sig/Jazmyn Route Start Time Stop Time Status Last Admin Dose Admin Acetaminophen (Tylenol Tab) 650 mg Q4H PRN PO 03/29/16 12:15 04/28/16 12:14 Al Hydrox/Mg Hydrox/Simethicone (Maalox Max Susp) 15 ml Q4H PRN PO 03/29/16 12:15 04/28/16 12:14 03/30/16 20:24 15 ML Ondansetron HCl (Zofran Inj) 4 mg Q6H PRN IV 03/29/16 12:15 04/28/16 12:14 03/31/16 03:07 4 MG Donepezil HCl (Aricept Tab) 5 mg DAILY PO 03/30/16 09:00 04/29/16 08:59 03/30/16 08:18 5 MG Albuterol/ Ipratropium (Combivent Respimat Inh) 1 puffs QID INH 03/29/16 17:00 04/28/16 16:59 03/30/16 20:24 1 PUFFS Lidocaine (Lidoderm Patch 5%) 1 patch DAILY TD 03/30/16 09:00 04/29/16 08:59 03/30/16 08:19 1 PATCH Magnesium Hydroxide (Milk Of Magnesia Susp) 30 ml DAILY PRN PO 03/29/16 12:15 04/28/16 12:14 Memantine (Namenda Tab) 5 mg BID PO 03/29/16 21:00 04/28/16 20:59 03/30/16 20:25 5 MG Metoprolol Tartrate (Lopressor Tab) 50 mg Q12 PO 03/29/16 21:00 04/28/16 20:59 03/30/16 20:24 50 MG Nystatin (Mycostatin Susp) 5 ml QID PO 03/29/16 17:00 04/08/16 16:59 03/30/16 20:24 5 ML Pantoprazole Sodium (Protonix Tab) 40 mg DAILY PO 03/30/16 09:00 04/29/16 08:59 03/30/16 08:17 40 MG Miscellaneous 1 ea 1 ea DAILY@21 N/A 03/30/16 21:00 04/29/16 20:59 03/30/16 20:25 1 EA Piperacillin Sod/ Tazobactam Sod/ Dextrose (Zosyn Iv/D5 100ml) 115 ml @ 28.75 mls/ hr Q8H IV 03/29/16 17:00 04/05/16 16:59 03/31/16 00:10 28.75 MLS/HR Azithromycin (Zithromax Tab) 500 mg QAM PO 03/30/16 09:00 04/06/16 08:59 03/30/16 08:17 500 MG Fluoxetine HCl (Prozac Cap) 10 mg QAM PO 03/30/16 09:00 04/29/16 08:59 03/30/16 08:18 10 MG Albuterol Sulfate (Ventolin 0.083% 2.5MG/3ML Neb) 2.5 mg QIDR PRN INH 03/29/16 16:00 04/28/16 15:59 Piperacillin Sod/ Tazobactam Sod 1 ea 1 ea UD PRN N/A 03/29/16 14:45 04/28/16 14:44 Midazolam HCl 250 ml @ 0 mls/hr Q0M PRN IV 03/31/16 05:15 04/30/16 05:14 Fentanyl Citrate (Fentanyl Drip 1250MCG/250 Nss) 250 ml @ 0 mls/hr Q0M PRN IV 03/31/16 05:15 04/14/16 05:14 Propofol (Diprivan Iv Emulsion 100ml Vial) 1 dose UD PRN IV 03/31/16 06:30 04/03/16 06:29 Chlorhexidine Gluconate (Peridex Oral Soln) 15 ml BID MT 03/31/16 09:00 04/30/16 08:59 Fentanyl Citrate 50 mcg 50 mcg Q2H PRN IV 03/31/16 06:30 04/14/16 06:29 Sodium Chloride 1,000 ml @ 100 mls/hr Q10H IV 03/31/16 07:45 04/30/16 07:44 Trimethoprim/ Sulfamethoxazole 300 mg/Diluent 18.75 ml @ 0 mls/hr Q6H IV 03/31/16 07:30 04/07/16 07:29 UNV Diltiazem HCl 125 mg/Dextrose 125 ml @ 0 mls/hr Q0M PRN IV 03/31/16 07:45 04/30/16 07:44 Sodium Chloride (Nss 500ml) 500 ml @ 999 mls/hr Q31M IV 03/31/16 07:45 04/30/16 07:44 UNV I & O: 24-Hour Column 03/31/16 08:00 Intake Total 973 ml Output Total 275 ml Balance 698 ml Vital Signs: Date Time Temp Pulse Resp B/P Pulse Ox O2 Delivery O2 Flow Rate FiO2 03/31/16 06:06 134 38 109/90 96 Mechanical Ventilator 100 03/31/16 05:40 125 37 89/63 96 Mechanical Ventilator 100 03/31/16 04:55 100 03/31/16 04:42 38.5 113 36 112/59 90 Mechanical Ventilator 100 03/31/16 03:00 101 44 128/73 91 BiPAP 100 03/31/16 00:05 91 High Flow Oxygen 55.0 100 03/30/16 23:20 36.8 81 24 97/52 90 High Flow Oxygen 03/30/16 20:00 84 High Flow Oxygen 50.0 60 03/30/16 19:54 36.7 92 33 119/66 86 High Flow Oxygen 03/30/16 16:00 89 High Flow Oxygen 15.0 60 03/30/16 15:46 36.9 75 28 112/61 88 High Flow Oxygen 03/30/16 12:00 BiPAP 60 03/30/16 12:00 93 Non-Rebreather 15.0 03/30/16 11:50 36.5 82 22 119/62 90 Non-Rebreather 15.0 Laboratory Results: Last 24 Hours Test 03/30/16 17:09 03/31/16 05:45 03/31/16 07:15 Venous Blood pH 7.47 Venous Blood Partial Pressure CO2 41 mmHg Venous Blood Partial Pressure O2 35 mmHg Venous Blood HCO3 29 mmol/L Venous Blood Oxygen Saturation 66.5 % Venous Blood Base Excess 5.2 mmol/L Sodium Level 140 mmol/L Potassium Level 4.0 mmol/L Chloride Level 102 mmol/L Carbon Dioxide Level 28 mmol/L Anion Gap 10.0 mmol/L Blood Urea Nitrogen 13 mg/dl Creatinine 0.80 mg/dl Est Creatinine Clear Calc Drug Dose 42.0 ml/min Estimated GFR () 77.9 Estimated GFR (Non- 67.2 BUN/Creatinine Ratio 16.5 Random Glucose 184 mg/dl Calcium Level 7.9 mg/dl Magnesium Level 2.0 mg/dl White Blood Count 23.65 K/uL Red Blood Count 2.89 M/uL Hemoglobin 8.4 g/dL Hematocrit 26.3 % Mean Corpuscular Volume 91.0 fL Mean Corpuscular Hemoglobin 29.1 pg Mean Corpuscular Hemoglobin Concent 31.9 g/dl Platelet Count 421 K/uL Mean Platelet Volume 9.1 fL RDW Standard Deviation 55.2 fL RDW Coefficient of Variation 16.7 % Nucleated RBC Absolute Count (auto) 0.03 K/uL Neutrophils % (Manual) 96.5 % Lymphocytes % (Manual) 1.7 % Monocytes % (Manual) 0.9 % Eosinophils % (Manual) 0.9 % Nucleated Red Blood Cells % 0.1 % Neutrophils # (Manual) 22.82 K/uL Total Absolute Neutrophils 22.82 K/uL Lymphocytes # (Manual) 0.40 K/uL Total Absolute Lymphocytes 0.40 K/uL Monocytes # (Manual) 0.21 K/uL Eosinophils # (Manual) 0.21 K/uL Hypochromasia PRESENT Tear Drop Cells 1+
[2016-03-31 08:17] LABS: INR 4.4 (0.9-1.1)
--- NOTE | 2016-03-31 08:22 | DIAGNOSTIC IMAGING REPORT ---
CT OF THE CHEST WITHOUT IV CONTRAST CLINICAL HISTORY: Subcutaneous air status post intubation. Acute respiratory failure. COMPARISON STUDY: Chest radiograph March 31, 2016 at 4:[address] DOSE: 360.03 mGy.cm TECHNIQUE: Axial images of the chest were obtained without IV contrast. Images were reviewed in the axial, sagittal, and coronal planes. IV contrast was not administered for this examination. FINDINGS: The tip of the endotracheal tube is within the proximal right mainstem bronchus and could be withdrawn 4 cm. The tip of the nasogastric tube is below the lower aspect of this image but at least within the gastric antrum. There is extensive subcutaneous gas within the neck, chest wall and upper abdomen with extensive pneumomediastinum. There may be a pneumopericardium. No pneumothorax is identified. Of note, there is discontinuity with bulging of the right posterior lateral wall of the distal trachea. The irregularity of the wall measures 3 x 1.6 cm. This likely accounts for the extensive pneumomediastinum. The heart is moderately enlarged. A moderate sized hiatal hernia is noted. There are extensive airspace opacities within the lungs. The sensitivity is somewhat assessed due to respiratory motion. There are trace bilateral pleural effusions. Multiple compression fractures within the spine are noted. These are likely old. 2 level vertebral augmentation is noted. There are old rib fractures bilaterally. IMPRESSION: 1. Extensive subcutaneous gas and pneumomediastinum with significant increase in the amount of gas since chest radiograph performed at 4:52 AM. This gas is likely due to disruption of the right posterior lateral wall of the trachea, 2 cm above the temitope. Discussed with Naomi Medrano at time of dictation. 2. Tip of endotracheal tube within the proximal right mainstem bronchus. 3. Extensive bilateral airspace opacities within lungs which favor pneumonia. Pulmonary edema could appear similar. 4. Moderate cardiomegaly. Suspected pneumopericardium, related to pneumomediastinum. 5. Small bilateral pleural effusions. No pneumothorax. Electronically signed by: Girish Bryant M.D. 03/31/2016 8:20 AM Dictated Date/Time: 03/31/2016 7:02 AM
[2016-03-31] MEDS: NYSTATIN SUSP 500,000 U/5 ML UDC PO SCH (09:00)
[2016-03-31] MEDS ORDERED: METHYLPREDNISOLONE IV 30 MG in SYRINGE 0 ML IV SCH (09:00)
[2016-03-31] MEDS ORDERED: SULFAMETHOXAZOLE/TRIMETHOPRIM DS 800/160MG TAB PO SCH (09:00)
[2016-03-31] MEDS ORDERED: PANTOprazole INJ 40 MG in SYRINGE 0 ML IV SCH (09:00)
[2016-03-31] MEDS ORDERED: CHLORHEXIDINE GLUCONATE 0.12% 480 ML MT SCH (09:00)
[2016-03-31] MEDS: LIDODERM (LIDOCAINE) PATCH 5% TD SCH (09:00)
[2016-03-31] MEDS: METOPROLOL TARTRATE 50 MG TAB PO SCH (09:15)
[2016-03-31] MEDS: AZITHROMYCIN 250 MG TAB PO SCH (09:17)
--- NOTE | 2016-03-31 09:30 | Cardiology Follow-Up ---
Subjective General Date of Service: Mar 31, 2016. Chief Complaint: Chest pain, SVT Pt evaluation today including: physical exam, chart review, lab review, review of studies, review of inpatient medication list History of Present Illness Patient seen and examined. Interim events reviewed. CXR x [address] reviewed. Patient sedated, intubated. No family at bedside. Telemetry: Currently sinus tachycardia ~100 bpm. Interim continuous telemetry monitoring reveals sinus tachycardia with rare ventricular ectopy, supraventricular ectopy and runs of supraventricular tachycardia. No overt atrial fibrillation observed. No pauses. March 30, 2016 TTE Interpretation Summary ([facility], Dr. Contreras): The left ventricular wall motion is normal. Ejection Fraction = 60-65%.Moderate aortic valve sclerosis is present. Aortic stenosis is absent. Mild aortic regurgitation. There is mild mitral regurgitation. The right ventricle is normal size. The right ventricular systolic function is qualitatively normal. Grade I diastolic dysfunction, (abnormal relaxation pattern). Doppler findings do not suggest pulmonary hypertension. Allergies Coded Allergies: Codeine (Unverified Adverse Reaction, Severe, vomiting, 03/29/16) Hydromorphone (Unverified Adverse Reaction, Severe, vomiting, 03/29/16) Morphine (Unverified Adverse Reaction, Severe, vomiting, 03/29/16) Social History Smoking Status: Never Smoker Problem List Medical Problems: (1) Hypoxia Status: Acute (2) Leukocytosis Status: Acute (3) Pneumonitis Status: Acute Physical Exam Vital Signs Last Vital Signs Documentation Date Time Temp Pulse Resp B/P Pulse Ox O2 Delivery O2 Flow Rate FiO2 03/31/16 08:00 37.5 106 36 94/33 95 Mechanical Ventilator 100 105/61 03/31/16 00:05 55.0 Physical Exam Constitutional: Level of Distress: acutely ill, chronically ill Neck: pertinent finding (No overt JVD) Lungs: Auscultation: no wheezing, deminished air movement, decreased breath sounds , rales/crackles on the left, rales/crackles on the right Cardiovascular: Heart Auscultation: normal S1, normal S2, no murmurs, no rubs, tachycardia Peripheral Pulses: Radial Pulse: normal on the left, normal on the right Dorsalis Pedis Pulse: decreased on the left, decreased on the right Abdomen: Bowel Sounds: normal Extremities: no cyanosis, no edema, no clubbing Assessment and Plan Assessment and Plan Physiologic sinus tachycardia, supraventricular ectopy, and salvos of supraventricular tachycardia (no overt atrial fibrillation) felt to be secondary to acute on chronic pulmonary disease including healthcare acquired pneumonia, recent bilateral PE's, chronic pulmonary fibrosis, ? 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 No evidence of an acute coronary syndrome. No evidence of acute decompensated congestive heart failure Preserved LV systolic function. No significant valvular heart disease. RECOMMENDATIONS/PLAN: As per Pulmonary Medicine/Critical Care. Prognosis grim. ATTENDING CARDIOLOGY ADDENDUM: 03/31/16, 12:27 pm: CARDIOLOGY ATTENDING ADDENDUM: The patient's case was discussed with Mr BarriosHarley. Agree with Kyaw Souza PA-C's findings and plans as documented above. Patient extubated on comfort care and had recently when I came to see her. Laboratory Results Last 24 Hours Test 03/30/16 17:09 03/31/16 05:45 03/31/16 07:15 03/31/16 08:50 Venous Blood pH 7.47 Venous Blood Partial Pressure CO2 41 mmHg Venous Blood Partial Pressure O2 35 mmHg Venous Blood HCO3 29 mmol/L Venous Blood Oxygen Saturation 66.5 % Venous Blood Base Excess 5.2 mmol/L Sodium Level 140 mmol/L Potassium Level 4.0 mmol/L Chloride Level 102 mmol/L Carbon Dioxide Level 28 mmol/L Anion Gap 10.0 mmol/L Blood Urea Nitrogen 13 mg/dl Creatinine 0.80 mg/dl Est Creatinine Clear Calc Drug Dose 42.0 ml/min Estimated GFR () 77.9 Estimated GFR (Non- 67.2 BUN/Creatinine Ratio 16.5 Random Glucose 184 mg/dl Calcium Level 7.9 mg/dl Magnesium Level 2.0 mg/dl White Blood Count 23.65 K/uL Red Blood Count 2.89 M/uL Hemoglobin 8.4 g/dL Hematocrit 26.3 % Mean Corpuscular Volume 91.0 fL Mean Corpuscular Hemoglobin 29.1 pg Mean Corpuscular Hemoglobin Concent 31.9 g/dl Platelet Count 421 K/uL Mean Platelet Volume 9.1 fL RDW Standard Deviation 55.2 fL RDW Coefficient of Variation 16.7 % Nucleated RBC Absolute Count (auto) 0.03 K/uL Neutrophils % (Manual) 96.5 % Lymphocytes % (Manual) 1.7 % Monocytes % (Manual) 0.9 % Eosinophils % (Manual) 0.9 % Nucleated Red Blood Cells % 0.1 % Neutrophils # (Manual) 22.82 K/uL Total Absolute Neutrophils 22.82 K/uL Lymphocytes # (Manual) 0.40 K/uL Total Absolute Lymphocytes 0.40 K/uL Monocytes # (Manual) 0.21 K/uL Eosinophils # (Manual) 0.21 K/uL Hypochromasia PRESENT Tear Drop Cells 1+ Prothrombin Time 50.4 SECONDS Prothromb Time International Ratio 4.4 Creatine Kinase MB Ratio
[2016-03-31] MEDS ORDERED: DEXTROSE 5% IV SCH (10:00)
[2016-03-31] MEDS ORDERED: MoRPHine SULF/NSS 250MG/250ML 250 ML IV PRN (10:03)
[2016-03-31] MEDS ORDERED: ONDANSETRON INJ 2 MG/ML 2 ML VIAL IV STA (10:04)
[2016-03-31] MEDS ORDERED: LORAZEPAM 2 MG/ML 1 ML VIAL IV STA (10:04)
[2016-03-31] MEDS ORDERED: MoRPHine SULFATE 10 MG/ML CARP/VIAL IV STA (10:04)
[2016-03-31 10:06] LABS: CKMB/CK RATIO 3.9 (0-3.0)
[2016-03-31] MEDS ORDERED: ONDANSETRON INJ 6 MG in DEXTROSE 5% 50ML 50 ML IV STA (10:12)
[2016-03-31] MEDS ORDERED: MoRPHine SULFATE 4 MG/ML 1 ML CARP\\VIAL IV PRN (10:15)
[2016-03-31] MEDS ORDERED: MoRPHine SULFATE 2 MG/ML CARP IV PRN (10:15)
[2016-03-31] MEDS: LORAZEPAM 2 MG/ML 1 ML VIAL IV PRN ×3 (10:26→11:23)
[2016-03-31] MEDS ORDERED: ATROPINE SULFATE 1% OP SOLN 5 ML BTL SL PRN (10:30)
[2016-03-31] MEDS ORDERED: VANCOMYCIN TROUGH SCH (11:30)
--- NOTE | 2016-03-31 11:32 | CRITICAL CARE CONSULTATION ---
DATE OF CONSULTATION: 03/31/2016 CHIEF COMPLAINT: Shortness of breath. HISTORY OF PRESENT ILLNESS: The patient is an 85-year-old woman with a history of steroid dependent rheumatoid arthritis which is also treated with methotrexate. She had a 12 day stay at [facility] at which time she was diagnosed with pulmonary embolism. She was discharged to [facility] and by report from family had oxygen desaturations on her way to [facility]. She was transferred to [facility] the same day. She was admitted to the floor and was placed on Zosyn, Levaquin and azithromycin. She was seen by the pulmonary service and had increasing oxygen requirements. Last night, she was placed on high flow nasal cannula and then BiPAP. She was given 40 mg of Lasix and eventually a code purple was called secondary to hypoxemia. She was intubated while she was on the floor and presented to the ICU afterwards. I just happened to be in the ICU at that time and went to her bedside immediately. She was hypotensive and was initially placed on 100% FIO2 with a PEEP of 10. Her chest x-ray which was read by me at the bedside showed a right mainstem intubation. The ET tube was pulled back. On the chest x-ray a large amount of subcutaneous air was identified. I did not see a pneumothorax. She was sent for CT scan of the chest which revealed extensive subcutaneous gas and pneumomediastinum with significant increase in the amount of gas since the chest x-ray performed at 4:52 a.m. This gas is likely due to a disruption of the right posterolateral wall of the trachea. There are also extensive bilateral airspace opacities within the lungs favoring pneumonia. She had moderate cardiomegaly and suspected pneumopericardium related to the pneumomediastinum. I discussed her care with Dr. Wilkinson who came in to evaluate her. 16 gauge Angiocath's were placed in the subcutaneous tissue in her chest. She also had an intraosseous catheter placed shortly after arrival to the ICU. PAST MEDICAL HISTORY: PE, SVT, UTI, rheumatoid arthritis, gastroesophageal reflux disease, hypertension, thrombophlebitis. PAST SURGICAL HISTORY: Status post kyphoplasty x2, hysterectomy, laparoscopic cholecystectomy, cataract extractions. ALLERGIES: CODEINE, HYDROMORPHONE AND MORPHINE WHICH CAUSED NAUSEA. SOCIAL HISTORY: She is and has a remote history of tobacco use. No alcohol use. FAMILY HISTORY: Mother with uterine ovarian cancer as well as diabetes. MEDICATIONS: Upon transfer from [facility] albuterol, Augmentin, calcium with vitamin D, Flexeril, Colace, Aricept, Pepcid, ferrous sulfate, Prozac, folic acid, Combivent, lidocaine patch, milk of magnesia, Namenda, methotrexate, metoprolol, Nystatin, Percocet, Protonix, MiraLax, prednisone, Senna, Fleets enema, tramadol, trazodone, Coumadin. REVIEW OF SYSTEMS: Not obtainable secondary to her intubated state. PHYSICAL EXAMINATION: GENERAL: She was tachypneic and moving her arms towards the endotracheal tube, but not following commands. I was unable to examine her pupils secondary to significant periorbital subcutaneous emphysema. The endotracheal tube is in place. NECK: Showed a left external jugular IV which I placed on her arrival to the ICU. Significant subcutaneous emphysema. LUNGS: Decreased breath sounds throughout. They were equal bilaterally after pulling the endotracheal tube back. Rales faint throughout. ABDOMEN: Distended, firm, no bowel sounds. EXTREMITIES: Cool with 1+ radial and dorsalis pedis pulses. SKIN: Very thin and again massive subcutaneous emphysema basically from her head to her upper abdomen. LABORATORY DATA: White blood cell count 23.65, hemoglobin 8.4, hematocrit 26.3, platelets 421. Sodium 140, potassium 4, chloride 102, CO2 of 28, BUN 13, creatinine 0.8, blood sugar 184. INR 4.4. Microbiology data was reviewed. Radiographs were reviewed showing increasing interstitial infiltrates during her stay. EKG shows atrial fibrillation with rapid ventricular response, nonspecific ST-T wave changes. IMPRESSION: 1. Acute hypoxemic respiratory failure status post right mainstem intubation. The endotracheal tube was pulled back prior to her transfer to the CT scanner. It must have slipped down during transport and was pulled back again when she returned to the ICU. 2. Diffuse bilateral interstitial patchy infiltrates on CT, concerning for infectious or inflammatory process. The suspicion is that this may have been progressing over a period of time and is not as acute as it may seem. 3. Probable disruption of the trachea resulting in massive subcutaneous air. 4. Atrial fibrillation. 5. History of bilateral pulmonary embolism. 6. History of steroid dependent rheumatoid arthritis. PLAN: I updated her family this morning after her arrival to the ICU and as studies were being performed. I started a Levophed infusion as well as Cardizem infusion. An arterial line was placed in the left groin as well. I discussed her care with Dr. Wilkinson regarding possible bronchoscopy. After all of the family arrived, including her 6 children who wanted to make decisions collectively, Bartolo Lerma PA-C discussed her status and the family elected to change the goals of care to comfort. I met with them as well after that decision and described the process of terminal extubation. Since then, I have started a morphine infusion and she has liberal p.r.n. dosing of morphine as well as Ativan. Atropine ophthalmic drops sublingually are ordered as needed for secretions. Support was provided to the family and questions were answered. Critical care time 120 minutes excluding procedures.
--- NOTE | 2016-03-31 11:40 | Progress Note ---
Progress Note Date of Service Mar 31, 2016. Progress Note Nursing Service Administrator: Patient terminally extubated and shortly thereafter. Family was at the bedside. On exam no pulse, absent heart tones, absent breath sounds. She was pronounced at 11:25.
--- NOTE | 2016-03-31 12:22 | Progress Note ---
Progress Note Date of Service Mar 31, 2016. Progress Note I saw the patient in room 102 today; she was transferred from the PCU to ICU last night after becoming hypoxic, desaturating and requiring to be intubated. She was started on bipap last night, but she continued to desaturate and had to be intubated. Post-intubation CXR and CT scan showed extensive subcutaneous emphysema. Repeat Chest CT this morning showed the same extensive subcutaneous gas and pneumomediastinum with significant increase in the amount of gas present. This is likely due to the disruption of the right posterior lateral wall of the trachea. Hunter Skin Diver spoke with the family regarding patient's poor and terminal prognosis and it was decided that she would be terminally extubated this morning. After speaking with pulmonology and freight car cleaner [employer] system, seems like patient had a chronic interstitial lung disease. Possibly related to rheumatoid arthritis or methotrexate related pneumonitis. This was an 85 year old female with PMH of recent surgery at [facility] for compression fracture of T10, multiple PEs on Coumadin, perioperative SVT episode, HTN, HLD, chronic iron deficiency anemia, some underlying dementia, RA on methotrexate and steroids chronically presented with acute respiratory failure Acute Respiratory Failure 03/31 multifactorial - bilateral PE, chronic interstitial lung disease was intubated - significant pneumothorax and subcutaneous gas noted patient was terminally extubated today; at 1125 Hospital Course: March 30 exact etiology unclear Patient with a hx. of PEs and found to have bilateral PE during post-operative state at [facility]: Her INR is supratherapuetic at 4.0 today CXR on 03/29 Bilateral asymmetric pulmonary airspace opacities right greater than left. Likely diagnostic considerations include a bilateral pneumonitis versus an atypical appearance of asymmetric pulmonary edema. Clinical and radiographic follow-up is recommended Chest U/S was performed as well, but did not show much fluid possible health care associated pneumonia other considerations could include opioid induced respiratory depression, though RR was never low ABGs do not suggest hypercapnic respiratory acidosis appreciate pulm input for now: continue oxygen as needed; continue broad spectrum antibiotics and nebulizers as needed Repeat CXR in AM; echo pending Hx. of Pulmonary Embolism found to have bilateral PE post-operatively now on Coumadin and supratherapeutic Hold Coumadin and recheck INR in AM Iron Deficiency Anemia recent surgery for T10 kyphoplasty Has been at [facility] since then Hgb remains > 8 fecal occult blood pending check H/H daily, transfuse PRN or if SOB worsens Hx. of SVT patient had been on atenolol, which was recently changed to Lopressor due to post-operative episode of SVT currently in NSR, no significant abnormalities noted monitor in tele, continue current meds, cycle cardiac enzymes Right Upper Extremity Swelling possibly due to IV site already on Coumadin and INR is already therapeutic will obtain an U/S Rheumatoid Arthritis patient on chronic steroid and methotrexate therapy holding methotrexate here, continue steroids T10 Kyphoplasty patient not complaining about pain currently will try not to give opioids if pain is controlled DVT ppx Coumadin FULL CODE
--- NOTE | 2016-03-31 12:27 | Discharge Summary ---
Discharge Summary Date of Service Mar 31, 2016. Discharge Summary Admission Date: Mar 29, 2016 at 12:17 Discharge Date: Mar 31, 2016 Discharge Disposition: Principal Diagnosis: Pneumothorax Subcutaneous Emphysema Chronic Interstitial Lung Disease Health Care Associated Pneumonia Hospital Course I saw the patient in room 102 today; she was transferred from the PCU to ICU last night after becoming hypoxic, desaturating and requiring to be intubated. She was started on bipap last night, but she continued to desaturate and had to be intubated. Post-intubation CXR and CT scan showed extensive subcutaneous emphysema. Repeat Chest CT this morning showed the same extensive subcutaneous gas and pneumomediastinum with significant increase in the amount of gas present. This is likely due to the disruption of the right posterior lateral wall of the trachea. Renal Social Worker spoke with the family regarding patient's poor and terminal prognosis and it was decided that she would be terminally extubated this morning. After speaking with pulmonology and key account director, seems like patient had a chronic interstitial lung disease. Possibly related to rheumatoid arthritis or methotrexate related pneumonitis. This was an 85 year old female with PMH of recent surgery at [facility] for compression fracture of T10, multiple PEs on Coumadin, perioperative SVT episode, HTN, HLD, chronic iron deficiency anemia, some underlying dementia, RA on methotrexate and steroids chronically presented with acute respiratory failure 03/31 multifactorial - bilateral PE, chronic interstitial lung disease was intubated - significant pneumothorax and subcutaneous gas noted patient was terminally extubated today; at 1125 time of : 1125 Cause of : Pneumothorax, chronic interstitial lung disease, bilateral PE, HCAPs HOSPITAL COURSE March 30: exact etiology unclear Patient with a hx. of PEs and found to have bilateral PE during post-operative state at [facility]: Her INR is supratherapuetic at 4.0 today CXR on 03/29 Bilateral asymmetric pulmonary airspace opacities right greater than left. Likely diagnostic considerations include a bilateral pneumonitis versus an atypical appearance of asymmetric pulmonary edema. Clinical and radiographic follow-up is recommended Chest U/S was performed as well, but did not show much fluid possible health care associated pneumonia other considerations could include opioid induced respiratory depression, though RR was never low ABGs do not suggest hypercapnic respiratory acidosis appreciate pulm input for now: continue oxygen as needed; continue broad spectrum antibiotics and nebulizers as needed Repeat CXR in AM; echo pending Hx. of Pulmonary Embolism found to have bilateral PE post-operatively now on Coumadin and supratherapeutic Hold Coumadin and recheck INR in AM Iron Deficiency Anemia recent surgery for T10 kyphoplasty Has been at [facility] since then Hgb remains > 8 fecal occult blood pending check H/H daily, transfuse PRN or if SOB worsens Hx. of SVT patient had been on atenolol, which was recently changed to Lopressor due to post-operative episode of SVT currently in NSR, no significant abnormalities noted monitor in tele, continue current meds, cycle cardiac enzymes Right Upper Extremity Swelling possibly due to IV site already on Coumadin and INR is already therapeutic will obtain an U/S Rheumatoid Arthritis patient on chronic steroid and methotrexate therapy holding methotrexate here, continue steroids T10 Kyphoplasty patient not complaining about pain currently will try not to give opioids if pain is controlled DVT ppx Coumadin FULL CODE Total time spent on discharge = This includes examination of the patient, discharge planning, medication reconciliation, and communication with other providers. Discharge Instructions .
[2016-03-31 15:05] LABS: ISTAT ARTERIAL BLOOD GAS HCO3 25 meq/L (19-24); ISTAT ARTERIAL BLOOD GAS PCO2 43 mmHg (35-46); ISTAT ARTERIAL BLOOD GAS PO2 72 mmHg (80-95); ISTAT ARTERIAL BLOOD GAS pH 7.38 (7.35-7.45); ISTAT CARBON DIOXIDE 26 mEq/l (24-31); ISTAT DELIVERY SYSTEM Ventilator; ISTAT FIO2 100 %; ISTAT PEEP 3; ISTAT RATE 16; ISTAT SITE Art Line; VE 18.7; Vt 400
--- NOTE | 2016-03-31 19:35 | Procedure Note ---
Procedure Note Procedure Date Mar 31, 2016. Procedure Description Procedure Name: Emergent L femoral arterial line Procedure time out: side/site verified, patient ID confirmed, correct procedure Consent obtained: emergent consent implied Time of procedure: 06:00 Performed by: attending Indications: other Contraindications: none Description: L femoral arrow 10cm arterial line placed using standard barrier precautions and after being prepped with chlorhexidine. U/S guidance was used along with seldinger technique. No complications. Hemostasis achieved. Complications: none Patient tolerated procedure: well Post-procedure vital signs: reviewed and stable
--- NOTE | 2016-04-01 08:10 | EDITING REQUIRED CODING QUERY ---
CODING QUERY To promote full compliance with coding requirements relating to patient care, provider participation is requested in all cases of mammal keeper uncertainty. Please assist us with the question(s) below: Coding Question(s): Please clarify below, in your clinical opinion, regarding the bilateral Pulmonary Embolism. ( ) Acute Bilateral Pulmonary Embolism - Please clarify further below: ( ) This is a post-operative complication of the recent surgical procedure done prior to admission ( ) This is not a post-operative complication ( X ) No Acute Pulmonary Embolism during admission - this is a history only ( ) Pulmonary Embolism - Other: Specify Physician's Response(s): Thank you Hemalatha Frias Principal Diagnosis: "_that condition established after study, to be chiefly responsible for occasioning the admission of the patient to the hospital for care." Co-Existing Principal Diagnosis: "_when two or more diagnoses equally meet the criteria for principal diagnosis as determined by the circumstances of admission, diagnostic work up, and/or therapy provided, and the Alphabetic Index, Tabular List, or another coding guideline does not provide sequencing direction, any one of the diagnoses may be sequenced first." "When the physician has documented what appears to be a current diagnosis in the body of the record, but has not included the diagnosis in the final diagnostic statement, the physician should be asked whether the diagnosis should be added." (Source Coding [facility] 2 QTR90. p3-4)
--- NOTE | 2016-04-01 08:14 | EDITING REQUIRED CODING QUERY ---
CODING QUERY To promote full compliance with coding requirements relating to patient care, provider participation is requested in all cases of vp human resources uncertainty. Please assist us with the question(s) below: Coding Question(s): Please clarify below, in your clinical opinion, regarding the Pneumothorax and Subcutaneous Emphysema. PNEUMOTHROAX ( ) this is a complication resulting from the Endotracheal Intubation procedure ( ) this is not a complication of procedure (x ) other etiology - Specify___Multifactorial, including her likely chronic interstitial lung disease, also trauma from intubation and increased barotrauma from excess pressure SUBCUTANEOUS EMPHYSEMA ( ) this is a complication resulting from the Endotracheal Intubation procedure ( ) this is not a complication of procedure (x ) other etiology - Specify____same as above Physician's Response(s): Thank you Hemalatha Frias Principal Diagnosis: "_that condition established after study, to be chiefly responsible for occasioning the admission of the patient to the hospital for care." Co-Existing Principal Diagnosis: "_when two or more diagnoses equally meet the criteria for principal diagnosis as determined by the circumstances of admission, diagnostic work up, and/or therapy provided, and the Alphabetic Index, Tabular List, or another coding guideline does not provide sequencing direction, any one of the diagnoses may be sequenced first." "When the physician has documented what appears to be a current diagnosis in the body of the record, but has not included the diagnosis in the final diagnostic statement, the physician should be asked whether the diagnosis should be added." ([facility] QTR90. p3-4)
--- NOTE | 2016-04-01 08:18 | EDITING REQUIRED CODING QUERY ---
CODING QUERY To promote full compliance with coding requirements relating to patient care, provider participation is requested in all cases of pre coder uncertainty. Please assist us with the question(s) below: Coding Question(s): There is a procedure documented on 03/31/16 for an emergent L femoral arterial line. Please specify below, the final tip location, if known. ( ) Final tip location is known - Specify the location ( ) Final tip location is unknown -- it is a femoral line so it does not need confirmation of tip with xray. Physician's Response(s): Thank you Hemalatha Frias Principal Diagnosis: "_that condition established after study, to be chiefly responsible for occasioning the admission of the patient to the hospital for care." Co-Existing Principal Diagnosis: "_when two or more diagnoses equally meet the criteria for principal diagnosis as determined by the circumstances of admission, diagnostic work up, and/or therapy provided, and the Alphabetic Index, Tabular List, or another coding guideline does not provide sequencing direction, any one of the diagnoses may be sequenced first." "When the physician has documented what appears to be a current diagnosis in the body of the record, but has not included the diagnosis in the final diagnostic statement, the physician should be asked whether the diagnosis should be added." ([facility] QTR90. p3-4)
== END 2016-03-31 12:34 | disposition expired | DRG 208 ==
LOC: ENRESERVTM → ENRESERVDT → EDBD 08:46 → C.EDB 08:48 → C.EDINP 12:17 → C.2E 19:44 → C.MSICU 03-31 05:09
PROVIDERS: ADMIT Hospitalist; ATTEND Family Medicine
PROC: 5A1935Z Respiratory Ventilation, Less than 24 Consecutive Hours (ICD-10-PCS; principal; 2016-03-31)
PROC: 0BH18EZ Insertion of Endotracheal Airway into Trachea, Via Natural or Artificial Opening Endoscopic (ICD-10-PCS; principal; 2016-03-31)
PROC: 03HY32Z Insertion of Monitoring Device into Upper Artery, Percutaneous Approach (ICD-10-PCS; 2016-03-31)
DX: J96.01 Acute respiratory failure with hypoxia (principal); J18.9 Pneumonia, unspecified organism; J86.0 Pyothorax with fistula; J84.9 Interstitial pulmonary disease, unspecified; I47.1 Supraventricular tachycardia; J95.811 Postprocedural pneumothorax; T81.82XA Emphysema (subcutaneous) resulting from a procedure, initial encounter; T70.8XXA Other effects of air pressure and water pressure, initial encounter; Z51.5 Encounter for palliative care; D50.9 Iron deficiency anemia, unspecified; M79.89 Other specified soft tissue disorders; F03.90 Unspecified dementia, unspecified severity, without behavioral disturbance, psychotic disturbance, mood disturbance, and anxiety; I10 Essential (primary) hypertension; F32.9 Major depressive disorder, single episode, unspecified; M06.9 Rheumatoid arthritis, unspecified; E55.9 Vitamin D deficiency, unspecified; M81.0 Age-related osteoporosis without current pathological fracture; Z79.899 Other long term (current) drug therapy; Z79.01 Long term (current) use of anticoagulants; Z79.52 Long term (current) use of systemic steroids; Z86.711 Personal history of pulmonary embolism; Z87.01 Personal history of pneumonia (recurrent); Z98.890 Other specified postprocedural states; Z87.311 Personal history of (healed) other pathological fracture; Z87.891 Personal history of nicotine dependence; Z86.718 Personal history of other venous thrombosis and embolism; Z83.3 Family history of diabetes mellitus; Z80.3 Family history of malignant neoplasm of breast; Z80.41 Family history of malignant neoplasm of ovary; Z80.42 Family history of malignant neoplasm of prostate; Z80.49 Family history of malignant neoplasm of other genital organs; Z80.1 Family history of malignant neoplasm of trachea, bronchus and lung; Y83.8 Other surgical procedures as the cause of abnormal reaction of the patient, or of later complication, without mention of misadventure at the time of the procedure; Y92.239 Unspecified place in hospital as the place of occurrence of the external cause